=== PATIENT | female | born 1950 | race African-American/Black ===

== ENCOUNTER 2018-08-08 23:46 | Emergency (ER) | payer MEDICARE, MEDICAID ==
[~2018-08-08] VITALS: Ht 165.1 cm; Wt 93.2 kg
[~2018-08-08 23:46] MED LIST: CATAPRES 0.1MG0.1 MG PO; CLARITIN 1010 MG/TAB PO; HYZAAR 25 MG-101 TAB PO; IPRATROPIUM BROM3 M1 IH; K-DUR20 MEQ PO; LAMICTAL 100MG100 MG PO; LEVAQUIN 750MG750 M1 PO; LIQUIFILM TEARS15 ML; MACRODANTIN100 PO; MAG-OX 400400 MG/TAB PO; NORCO 325 MG-51 TAB PO; NORCO 325 MG-7.1 TAB PO; NORFLEX 10100 MG/TAB PO; PREDNISONE10 MG PO; PREDNISONE20 MG PO; PROAIR HFA0.09 MG/AC IH; SPIRIVA RE2.5 MCG/Ac IH; TENORMIN 5050 MG/TAB PO; VERELAN360 MG PO; XANAX 1MG1 MG PO; ZITHROMAX 250M250 MG PO; ZITHROMAX Z PA250 MG PO
[2018-08-08 23:47] VITALS: TEMP 97
[2018-08-09 00:25] LABS: COLLECTION METHOD CLEAN CATCH
[2018-08-09 00:30] LABS: PH 7 (5-8); SQUAMOUS EPITHELIAL 0-2 /hpf; URINE APPEARANCE Clear; URINE BACTERIA None Seen /hpf; URINE BILIRUBIN Negative (NEGATIVE); URINE BLOOD Negative (NEGATIVE); URINE COLOR Straw; URINE GLUCOSE Negative (NEGATIVE); URINE KETONE Negative (NEGATIVE); URINE LEUKOCYTE ESTERASE Trace (NEGATIVE); URINE NITRATE Negative (NEGATIVE); URINE PROTEIN(semi-quant) Negative (NEGATIVE); URINE RBC 0-2 /hpf; URINE UROBILINOGEN Negative (NEGATIVE)
[2018-08-09 01:32] LABS: BASO # 0.1 (0.0-0.2); BASO % 0.9 % (0.0-2.0); EOS # 0.3 (0.0-0.7); EOS % 5.2 % (0-4.0); GRAN # 1.8 (1.4-6.5); GRAN % 33.4 % (42.2-75.2); HEMOGLOBIN 14.6 g/dl (12.5-16.0); LYMPH # 2.8 (1.2-3.4); LYMPH % 52.5 % (20.0-51.0); MEAN CELL VOLUME 96 fl (80.0-100.0); MEAN CORPUSCULAR HEMOGLOBIN 33 pg (27.0-31.0); MEAN CORPUSCULAR HGB CONC 35 g/dl (33.0-37.0); MONO # 0.4 (0.1-0.6); MONO % 7.8 % (1.7-9.3); PLATELET COUNT 161 K/mm3 (130-400); RED BLOOD COUNT 4.39 M/mm3 (4.10-5.30); REDCELL DISTRIBUTION WIDTH-CV 13.1 % (11.5-14.5)
[2018-08-09 01:41] LABS: ALANINE AMINOTRANSFERASE 14 U/L (9-52); ALBUMIN 3.9 gm/dL (3.5-5.0); ALKALINE PHOSPHATASE 122 U/L (50-136); ANION GAP 10 mmol/L (7-16); AST,SGOT 17 U/L (15-37); BILIRUBIN,TOTAL 0.3 mg/dL (0.0-1.0); BLOOD UREA NITROGEN 14 mg/dL (7-17); CALCIUM 9.4 mg/dL (8.4-10.2); CARBON DIOXIDE 29 mmol/L (22-30); CHLORIDE 103 mmol/L (98-107); CREATININE, serum 0.68 (0.52-1.25); GLUCOSE 96 mg/dL (74-106); LIPASE 46 U/L (23-300); MAGNESIUM 1.8 mg/dL (1.6-2.3); POTASSIUM 3.3 mmol/L (3.4-5.0); SODIUM 142 mmol/L (137-145); TOTAL PROTEIN 7.7 gm/dL (6.4-8.2)
[2018-08-09 01:52] LABS: TROPONIN-I < 0.012 ng/mL (0.000-0.035)
[2018-08-09] MEDS ORDERED: PREDNISONE20 MG PO (02:20)
[2018-08-09] MEDS ORDERED: IPRATROPIUM BROM3 M1 IH (02:21)
[2018-08-09 03:07] VITALS: BP 131/83; PULSE 76
== END 2018-08-09 03:07 | disposition home or self-care (01) ==
LOC: COL.ER 23:46
PROVIDERS: Emergency Medicine
DX: J44.1 Chronic obstructive pulmonary disease with (acute) exacerbation (principal); F17.210 Nicotine dependence, cigarettes, uncomplicated
CPT/HCPCS: J7512

== ENCOUNTER 2018-08-25 21:13 | Emergency (ER) | payer MEDICARE, MEDICAID ==
[~2018-08-25] VITALS: Ht 165.1 cm; Wt 77.3 kg
[2018-08-25 21:29] VITALS: BP 198/87
[2018-08-25 22:38] VITALS: TEMP 97.2
[2018-08-25] MEDS ORDERED: PREDNISONE20 MG PO (23:01)
[2018-08-25] MEDS ORDERED: IPRATROPIUM BROM3 M1 IH (23:02)
[2018-08-25 23:30] VITALS: PULSE 97
== END 2018-08-25 23:30 | disposition home or self-care (01) ==
LOC: COL.ER 21:13
DX: J45.909 Unspecified asthma, uncomplicated (principal); I10 Essential (primary) hypertension; J44.9 Chronic obstructive pulmonary disease, unspecified; F17.210 Nicotine dependence, cigarettes, uncomplicated
CPT/HCPCS: J7512

== ENCOUNTER 2018-11-19 20:06 | Emergency (ER) | payer MEDICARE, MEDICAID ==
[~2018-11-19] VITALS: Ht 165.1 cm; Wt 93.2 kg
[2018-11-19 20:16] VITALS: TEMP 98.6
[2018-11-19 21:27] LABS: EOS # 0.4 (0.0-0.7); EOS % 9.3 % (0-4.0); GRAN # 1.6 (1.4-6.5); GRAN % 37.7 % (42.2-75.2); HEMATOCRIT 43.3 % (37.0-47.0); HEMOGLOBIN 14.8 g/dl (12.5-16.0); LYMPH # 1.9 (1.2-3.4); LYMPH % 44.7 % (20.0-51.0); MEAN CELL VOLUME 96 fl (80.0-100.0); MEAN CORPUSCULAR HEMOGLOBIN 33 pg (27.0-31.0); MEAN CORPUSCULAR HGB CONC 34 g/dl (33.0-37.0); MEAN PLATELET VOLUME 10.6 fl (7.4-10.4); MONO # 0.3 (0.1-0.6); MONO % 7.1 % (1.7-9.3); PLATELET COUNT 186 K/mm3 (130-400); REDCELL DISTRIBUTION WIDTH-CV 12.7 % (11.5-14.5)
[2018-11-19 21:34] LABS: INR 1.1 (0.8-3.0); PROTHROMBIN TIME 12.5 SECONDS (9.7-12.8)
[2018-11-19 21:39] LABS: ALANINE AMINOTRANSFERASE 15 U/L (9-52); ALBUMIN 4.2 gm/dL (3.5-5.0); ALKALINE PHOSPHATASE 106 U/L (50-136); ANION GAP 8 mmol/L (7-16); AST,SGOT 21 U/L (15-37); BILIRUBIN,TOTAL 0.3 mg/dL (0.0-1.0); BLOOD UREA NITROGEN 10 mg/dL (7-17); CALCIUM 9.2 mg/dL (8.4-10.2); CARBON DIOXIDE 31 mmol/L (22-30); CHLORIDE 103 mmol/L (98-107); CREATININE, serum 0.71 (0.52-1.25); GLUCOSE 92 mg/dL (74-106); POTASSIUM 3.8 mmol/L (3.4-5.0); SODIUM 141 mmol/L (137-145); TOTAL PROTEIN 7.7 gm/dL (6.4-8.2)
[2018-11-19 21:59] LABS: TROPONIN-I < 0.012 ng/mL (0.000-0.035)
[2018-11-19] MEDS ORDERED: PREDNISONE20 MG PO (22:48)
[2018-11-19] MEDS ORDERED: ZITHROMAX500 M2 PO (22:48)
[2018-11-19 23:13] VITALS: BP 166/74; PULSE 83
== END 2018-11-19 23:17 | disposition home or self-care (01) ==
LOC: COL.ER 20:06
PROVIDERS: Emergency Medicine
DX: J45.901 Unspecified asthma with (acute) exacerbation (principal); I10 Essential (primary) hypertension; F17.210 Nicotine dependence, cigarettes, uncomplicated; Z98.890 Other specified postprocedural states; Z79.52 Long term (current) use of systemic steroids
CPT/HCPCS: J2930; J3105; J7030

== ENCOUNTER 2019-02-13 19:55 | Emergency (ER) | payer MEDICARE, MEDICAID ==
[~2019-02-13] VITALS: Ht 165.1 cm; Wt 93.2 kg
[~2019-02-13 19:55] MED LIST changes: +ZITHROMAX500 M2 PO
[2019-02-13 19:58] VITALS: TEMP 98.1
[2019-02-13 20:19] LABS: BASO # 0.1 (0.0-0.2); EOS # 0.2 (0.0-0.7); EOS % 4.5 % (0-4.0); GRAN # 2.8 (1.4-6.5); HEMATOCRIT 43.6 % (37.0-47.0); HEMOGLOBIN 15.1 g/dl (12.5-16.0); LYMPH # 1.5 (1.2-3.4); LYMPH % 30.1 % (20.0-51.0); MEAN CELL VOLUME 96 fl (80.0-100.0); MEAN CORPUSCULAR HEMOGLOBIN 33 pg (27.0-31.0); MEAN CORPUSCULAR HGB CONC 35 g/dl (33.0-37.0); MEAN PLATELET VOLUME 10.2 fl (7.4-10.4); MONO # 0.5 (0.1-0.6); MONO % 9.2 % (1.7-9.3); PLATELET COUNT 192 K/mm3 (130-400); RED BLOOD COUNT 4.55 M/mm3 (4.10-5.30); REDCELL DISTRIBUTION WIDTH-CV 13.1 % (11.5-14.5)
[2019-02-13] MEDS ORDERED: PREDNISONE20 MG PO (22:17)
[2019-02-13 22:22] VITALS: BP 171/94; PULSE 86
[2019-02-14] VITALS (62 sets, daily range): O2SAT 83–93
[2019-02-14] MEDS ORDERED: VENTOLIN0.09 MG IH (22:55)
[2019-02-14] MEDS ORDERED: CATAPRES 0.1MG0.1 MG PO (22:57)
[2019-02-14] MEDS ORDERED: NORCO 325 MG-101 TAB PO (22:58)
[2019-02-14] MEDS ORDERED: VOLTAREN GEL 1%1 TU TP (23:04)
[2019-02-14] MEDS ORDERED: NATURAL POTASS595 MG PO (23:05)
[2019-02-14] MEDS ORDERED: B COMPLEX & B121 TAB PO (23:07)
[2019-02-14] MEDS ORDERED: OMEGA-3 1000 MG1 CAP PO (23:09)
[2019-02-15] VITALS (555 sets, daily range): O2SAT 79–100
[2019-02-16] VITALS (390 sets, daily range): O2SAT 91–100
[2019-02-17] VITALS (736 sets, daily range): O2SAT 91–100
[2019-02-18] VITALS (347 sets, daily range): O2SAT 91–100
== END 2019-02-13 22:41 | disposition home or self-care (01) ==
LOC: COL.ER 19:55
PROVIDERS: Family Medicine
DX: J45.901 Unspecified asthma with (acute) exacerbation (principal)
CPT/HCPCS: J2930

== ENCOUNTER 2019-02-14 16:12 | Inpatient (IN) | payer MEDICARE, MEDICAID ==
[~2019-02-14] VITALS: Ht 165.1 cm; Wt 104.6 kg
[2019-02-14 17:14] LABS: HEMATOCRIT 47.1 % (37.0-47.0); HEMOGLOBIN 16.3 g/dl (12.5-16.0); MEAN CELL VOLUME 96 fl (80.0-100.0); MEAN CORPUSCULAR HEMOGLOBIN 33 pg (27.0-31.0); MEAN CORPUSCULAR HGB CONC 35 g/dl (33.0-37.0); MEAN PLATELET VOLUME 10.5 fl (7.4-10.4); PLATELET COUNT 220 K/mm3 (130-400); REDCELL DISTRIBUTION WIDTH-CV 13.1 % (11.5-14.5)
[2019-02-14 17:21] LABS: ALBUMIN 4.8 gm/dL (3.5-5.0); BILIRUBIN,TOTAL 0.3 mg/dL (0.0-1.0); CREATININE, serum 0.62 (0.52-1.25); POTASSIUM 3.3 mmol/L (3.4-5.0); TOTAL PROTEIN 8.8 gm/dL (6.4-8.2)
[2019-02-14 17:56] LABS: BAND 10 % (0-10); LYMPHOCYTE 7 % (20.0-51.0); NEUTROPHILS 82 % (42.0-75.2); PLATELET ESTIMATE NORMAL (NORMAL)
[2019-02-14 17:57] LABS: TOXIC GRANULATION PRESENT
[2019-02-14 22:09] LABS: ARTERIAL BLD GAS O2 SATURATION 92.4 % (92-100); ARTERIAL BLD GAS TCO2 CT 29.8; ARTERIAL BLOOD GAS PCO2 58.8 mmHg (35-45); ARTERIAL BLOOD GAS PO2 67.4 mmHg (80-100)
--- NOTE | 2019-02-14 22:15 | NUR ---
PT arrived on unit accompanied by TASHA Camara and TASHA Weber. PT was audibly wheezing, tachypneic, and constantly talking despite being informed that she needs to focus on her breathing. PT states that "I can talk and breathe at the same time. I have to talk to breathe." When asked if she is able to transfer herself to the bed, she stated no but then said she needed to get up to use the bathroom saying "Get me up now, I need to pee." Clarified with the patient as to whether she can get up or not she said "Well yeah when I have to." PT continually talking despite saying she feels like she can't breathe.
[2019-02-14] MEDS ORDERED: VENTOLIN0.09 MG IH (22:55)
[2019-02-14] MEDS ORDERED: CATAPRES 0.1MG0.1 MG PO (22:57)
[2019-02-14] MEDS ORDERED: NORCO 325 MG-101 TAB PO (22:58)
[2019-02-14] MEDS ORDERED: VOLTAREN GEL 1%1 TU TP (23:04)
[2019-02-14] MEDS ORDERED: NATURAL POTASS595 MG PO (23:05)
[2019-02-14] MEDS ORDERED: B COMPLEX & B121 TAB PO (23:07)
[2019-02-14] MEDS ORDERED: OMEGA-3 1000 MG1 CAP PO (23:09)
[2019-02-15] VITALS (10 sets, daily range): BP systolic 93–208; BP diastolic 54–137; PULSE 87–132; TEMP 97.4–98
[2019-02-15 03:37] LABS: ARTERIAL BLD GAS TCO2 CT 33.3; ARTERIAL BLOOD GAS BASE EXCESS -1.9 (-2-2); ARTERIAL BLOOD GAS HCO3 30.4 meq/L (22-26); ARTERIAL BLOOD GAS PO2 71.9 mmHg (80-100)
[2019-02-15 03:38] LABS: ARTERIAL BLOOD GAS PCO2 92.1 mmHg (35-45); ARTERIAL BLOOD GAS pH 7.14 (7.35-7.45)
--- NOTE | 2019-02-15 05:52 | NUR ---
0302 ASSUMED CARE OF PT AT THIS TIME, REQUESTED AID OF ED MD TO EMERGENTLY INTUBATED. 0337 ED MD AT BEDSIDE, RT RASHMI, RN CAREETA 20MG ETOMIDATE AND 150MG SUCCS GIVE RSI MEDS 0344 CARDENE PLACED ON HOLD 0349 FIRST PASS WITH TUBE PLACED AND GOOD COLOR CHANGE, AUSCULTATED WITH BILATERAL POSITIVE BREATHSOUNDS, ETT-24 AT THE TEETH, TUBE SECURED AND RESTRAINTS INITIATED 0356 PROPOFOL INITIATED AT 20MCG/KG/MIN 0356 OGT PLACED 76 AT TEETH 0358 PROPOFOL INCREASE TO 25MCG, ED MD AT BEDSIDE, PT SEVERLY FIGHTING VENT 0359 PROP INCREASED TO 30MCG 0404 PROP INCREASED TO 40MCH PT CONTINUES TO FIGHT VENT, WITH INADEQUATE VENTILATION 0405 PROP INCREASED TO 50MCG AND [facility] CALLED UNIT ORDERS WERE RECIEVED FOR ADDITIONAL SEDATION 0418 PT RECIEVED 50MCG FENTANYL AND 4MG VERSED PUSH WITH VERSED GTT INITIATED. WASCALLED AND UPDATED RE; VENT SETTINGS, HIGH DOSE SEDATIONS PROP AND FENT BEING CURRENTLY MAXED. ORDERS RECIEVED. PT REMAINS ASYNCHRONOUS - [address] ESTRADA CALLED X 2 AND VOICE MESSAGE LEFT ON 2ND CALL. [facility] THEN AGAIN CALLED FOR ADDITIONAL ORDERS. 0612 [facility] WAS CALLED AND UPDATED ON ABG RESULTS MCDONALD PLACED AT 0450 RT CONTINUES TO REMAIN AT BEDSIDE.
[2019-02-15 06:08] LABS: ARTERIAL BLD GAS O2 SATURATION 97.7 % (92-100); ARTERIAL BLD GAS TCO2 CT 33.2; ARTERIAL BLOOD GAS HCO3 30.4 meq/L (22-26); ARTERIAL BLOOD GAS PO2 118.1 mmHg (80-100)
[2019-02-15 06:09] LABS: ARTERIAL BLOOD GAS PCO2 93.8 mmHg (35-45); ARTERIAL BLOOD GAS pH 7.13 (7.35-7.45)
--- NOTE | 2019-02-15 06:31 | NUR ---
Throughout the night, patient was tachypneic with a RR in the high 30's to low 40's, hypertensive despite having Cardene running, tachycardic with a HR sustaining in the 130's. Patient extremely SOA with any activity, frequently stating "I'm hot, I can't breathe." PT continued to talk rather than try to catch breath despite direction from staff to reduce talking and focus on breathing. Orders were placed to have PT wear a BiPap but the patient refused despite direction from staff that she needed to wear it or her ABG, respiration rate, and overall decline of health that would likely lead to intubation. After an hour of discussion from myself, Tessa RT, and Tia RN, patient still refused stating "well how do you know it's bad? It's not bad, I'm better than I was earlier. I just need to eat and relax, I'm gonna do my own experiment to see if I get better. I know." Provider was notified several times about PT's refusal to wear BiPap. See physician notification notes for details. Initially on admit, PT stated she wanted to be a Full Code with all interventions. But as the night progressed and we discussed POC, interventions (ex. PT needing to wear her BiPap or else she would decline). PT stated "I just wanna relax and be comfortable." Informed that she needed to decide whether she wants interventions or not. Eventually, PT progressed to the point where she was answering questions inappropriately and was very forgetful. At this point, after discussing with provider and another nurse, it was decided to call family members to discuss POC. Kikiederwilner Dylan, PT's niece and PT stated she wanted her called first, was called 4 times, no answer, and no voicemail was set up. Marla Yu, PT daughter, was called 3 times, no answer, no voicemail was set up. Dr. Jones called back shortly after 0300 stating that he was on his way, the plan was to intubate the patient and to contact ER provider to do the intubation. Charge nurse was notified as well as retail warehouse supervisor.
--- NOTE | 2019-02-15 07:04 | NUR ---
PT INTUBATED AT 0337 DUE TO VENTILATORY FAILURE.
--- NOTE | 2019-02-15 07:33 | NUR ---
PT JUST RECENTLY INTUBATED AT 02/15 @ 0205
[2019-02-15 08:42] LABS: ARTERIAL BLD GAS O2 SATURATION 95.9 % (92-100); ARTERIAL BLD GAS TCO2 CT 26.7; ARTERIAL BLOOD GAS BASE EXCESS -4.4 (-2-2); ARTERIAL BLOOD GAS HCO3 24.8 meq/L (22-26); ARTERIAL BLOOD GAS PO2 87.8 mmHg (80-100); ARTERIAL BLOOD GAS pH 7.21 (7.35-7.45)
--- NOTE | 2019-02-15 08:49 | NUR ---
Vancomycin Initial Dosing Pharmacy Note Ordering provider: Eugene Jones MD Indication/duration: intubation/COPD, 7 days Relevant comorbidities: COPD LABS: SCr 0.62, CrCl~83, GFR 116 Recommendation: Will give Vancomycin 1.5 gm IV x1 loading dose, then Vancomycin 1 gm IV q8h. Pharmacy will continue to monitor and check a Vancomycin trough prior to 4th total dose on 02/16/19. Loading dose: 1.5 grams Maintenance dose: 1 gram every 8 hours Trough goal: 15-20 ug/mL
[2019-02-15 09:09] LABS: ARTERIAL BLD GAS O2 SATURATION 98.9 % (92-100); ARTERIAL BLOOD GAS BASE EXCESS -7.7 (-2-2); ARTERIAL BLOOD GAS HCO3 21.2 meq/L (22-26); ARTERIAL BLOOD GAS PCO2 57.3 mmHg (35-45); ARTERIAL BLOOD GAS PO2 163.6 mmHg (80-100); ARTERIAL BLOOD GAS pH 7.19 (7.35-7.45)
--- NOTE | 2019-02-15 09:20 | NUR ---
Versed changed to Fentanyl
[2019-02-15 11:22] LABS: BASO % 0.1 % (0.0-2.0); EOS % 0.1 % (0-4.0); HEMATOCRIT 43.3 % (37.0-47.0); LYMPH # 0.8 (1.2-3.4); LYMPH % 5.8 % (20.0-51.0); MEAN CORPUSCULAR HGB CONC 33 g/dl (33.0-37.0); MEAN PLATELET VOLUME 11.2 fl (7.4-10.4); MONO # 0.5 (0.1-0.6); MONO % 3.7 % (1.7-9.3); PLATELET COUNT 170 K/mm3 (130-400); RED BLOOD COUNT 4.26 M/mm3 (4.10-5.30); REDCELL DISTRIBUTION WIDTH-CV 13.9 % (11.5-14.5)
[2019-02-15 11:23] LABS: HEMOGLOBIN 14.3 g/dl (12.5-16.0); MEAN CELL VOLUME 102 fl (80.0-100.0); MEAN CORPUSCULAR HEMOGLOBIN 34 pg (27.0-31.0)
[2019-02-15 11:47] LABS: CALCIUM 8.6 mg/dL (8.4-10.2); CREATININE, serum 1.05 (0.52-1.25); MAGNESIUM 1.9 mg/dL (1.6-2.3); PHOSPHOROUS 3.8 mg/dL (2.5-4.5); POTASSIUM 4.8 mmol/L (3.4-5.0)
[2019-02-15 13:36] LABS: ARTERIAL BLD GAS O2 SATURATION 96.2 % (92-100); ARTERIAL BLD GAS TCO2 CT 25.4; ARTERIAL BLOOD GAS BASE EXCESS -5.3 (-2-2); ARTERIAL BLOOD GAS HCO3 23.5 meq/L (22-26); ARTERIAL BLOOD GAS PO2 86.8 mmHg (80-100); ARTERIAL BLOOD GAS pH 7.21 (7.35-7.45)
--- NOTE | 2019-02-15 13:43 | NUR ---
Trucker Hand was unable to meet with patient as she is currently intubated with full vent support. EUGENE spoke with RNRhona who advised family has not been reached yet. EUGENE contacted patient's daughter, Marla (ph#[phone]) who states she was unaware patient was in the hospital. Marla states she lives in [place] and states her brother, Aliyah Back also lives in [place] but does not have a working phone at this time. Marla reports patient lives alone in [place] [facility] and is unsure of who patient's primary care physician is. Marla states patient is independent with ADLS and uses home oxygen. Marla does not know if patient has Advance Directives but if someone was designated for DPOA-HC it would likely be her. Marla requested RN contact her so she could obtain update on her mother. EUGENE spoke with RNRhona who advised she would call Marla. EUGENE to continue to follow to ensure safe discharge.
[2019-02-15 20:00] LABS: COLLECTION METHOD CATHETER
--- NOTE | 2019-02-15 20:00 | NUR ---
Patient assessed, vitals stable, lines retraced. Will continue to monitor.
[2019-02-15 20:20] LABS: MUCOUS Present /lpf; PH 5 (5-8); SQUAMOUS EPITHELIAL 0-2 /hpf; URINE APPEARANCE Cloudy; URINE BACTERIA None Seen /hpf; URINE BILIRUBIN Negative (NEGATIVE); URINE BLOOD 2+ (NEGATIVE); URINE COLOR Yellow; URINE GLUCOSE Negative (NEGATIVE); URINE KETONE Negative (NEGATIVE); URINE LEUKOCYTE ESTERASE Trace (NEGATIVE); URINE NITRATE Negative (NEGATIVE); URINE PROTEIN(semi-quant) 2+ (NEGATIVE); URINE UROBILINOGEN Negative (NEGATIVE)
[2019-02-16] VITALS (7 sets, daily range): BP systolic 125–176; BP diastolic 64–96; PULSE 80–99; TEMP 98–98.7
--- NOTE | 2019-02-16 04:30 | NUR ---
Increased Propofol from 35 mcg/kg/min to 50 per [facility] provider.
--- NOTE | 2019-02-16 05:00 | NUR ---
Spoke with Dr. Nash via webcam in patient from about 0445 to 0525 regarding ventilation issues with the patient. Present in the room was TASHA Vaughan, Huma RT, and Colten RT. Dr. Nash had RT adjust the vent settings and switch vent machienes since the PT was not getting proper TV without high peak pressures despite sedation and setting changes. Before speaking to Dr. Nash, we spoke with TASHA Mims who recommended that we increase the propofol gtt from 35 mcg/kg/min to 50 without titrating, Dr. Nash agreeed with this course of action. 9mg of vecuronium was admistered per provider order by TASHA Vaughan. After doing so, patient's intake volumes increased and peak pressures decreased. Train of Four was performed on the patient's taoism where 1 of 4 twitches were noted.
--- NOTE | 2019-02-16 06:17 | NUR ---
no weaning assessment per Dr. Nash
[2019-02-16 06:33] LABS: HEMATOCRIT 38.6 % (37.0-47.0); HEMOGLOBIN 12.5 g/dl (12.5-16.0); MEAN CELL VOLUME 103 fl (80.0-100.0); MEAN CORPUSCULAR HEMOGLOBIN 33 pg (27.0-31.0); MEAN CORPUSCULAR HGB CONC 32 g/dl (33.0-37.0); MEAN PLATELET VOLUME 10.6 fl (7.4-10.4); PLATELET COUNT 139 K/mm3 (130-400); RED BLOOD COUNT 3.76 M/mm3 (4.10-5.30); REDCELL DISTRIBUTION WIDTH-CV 13.9 % (11.5-14.5)
[2019-02-16 06:42] LABS: CALCIUM 8.8 mg/dL (8.4-10.2); CREATININE, serum 1.84 (0.52-1.25); POTASSIUM 4.8 mmol/L (3.4-5.0)
[2019-02-16 07:18] LABS: ARTERIAL BLD GAS O2 SATURATION 98.6 % (92-100); ARTERIAL BLOOD GAS BASE EXCESS -1.2 (-2-2); ARTERIAL BLOOD GAS HCO3 27.1 meq/L (22-26); ARTERIAL BLOOD GAS PCO2 61.6 mmHg (35-45); ARTERIAL BLOOD GAS pH 7.26 (7.35-7.45)
[2019-02-16 07:20] LABS: ARTERIAL BLOOD GAS PO2 140.6 mmHg (80-100)
--- NOTE | 2019-02-16 07:59 | NUR ---
Vancomycin Follow-up Pharmacy Note Current regimen: Vancomycin 1 gm IV q12h Vancomycin trough: n/a, SCr=1.84<-1.05, CrCl~32, GFR 33 Adjustments: Will decrease Vancomycin to 1.25 gm IV q24h with decrease in renal function. Will check Vancomycin prior to 4th total dose on 02/17/19. Pharmacy will continue to monitor.
[2019-02-16 09:50] LABS: BAND 1 % (0-10); LYMPHOCYTE 6 % (20.0-51.0); NEUTROPHILS 91 % (42.0-75.2); PLATELET ESTIMATE NORMAL (NORMAL)
--- NOTE | 2019-02-16 17:00 | NUR ---
PT OPENS EYES TO VOICE. PT SHAKES HEAD YES OR NO TO SOME QUESTIONS BUT NOT ALL. PT MOVING ALL EXTREMITIES BUT WONT MOVE THEM TO COMMAND. WHEN ASSESSING PUPILS PT ATTEMPTS TO SHUT HER EYES. PT BECOMING RESTLESS AND BITING ET TUBE. SEDATION INCREASED.
--- NOTE | 2019-02-16 19:25 | NUR ---
Received report from TASHA Bonner.
--- NOTE | 2019-02-16 22:00 | NUR ---
Patient opens eyes to speech but does not follow commands. Patient rests between disturbances and is tolerating the ventilator well, however, tension is evident in her facial features and she wakes easily when stimulated. Patient's BP elevated slightly to 176/87 following repositioning and oral care. Propofol titrated according to orders to 45 mcg/kg/min or 24.2 mL/hour. Will continue to monitor.
[2019-02-17] VITALS (7 sets, daily range): BP systolic 132–174; BP diastolic 63–81; PULSE 91–102; TEMP 97.5–99.1
[2019-02-17 05:32] LABS: ARTERIAL BLD GAS O2 SATURATION 97.7 % (92-100); ARTERIAL BLD GAS TCO2 CT 30.7; ARTERIAL BLOOD GAS BASE EXCESS 3.2 (-2-2); ARTERIAL BLOOD GAS HCO3 29.2 meq/L (22-26); ARTERIAL BLOOD GAS PCO2 50.1 mmHg (35-45); ARTERIAL BLOOD GAS pH 7.38 (7.35-7.45)
--- NOTE | 2019-02-17 05:45 | NUR ---
Patient's sedation vacation begun at 0506 by titrating propofol to 22 mcg/kg/min or 11.8 mL/hr. Patient opened eyes spontaneously but still does not follow commands. Patient became more resistant to ventilator, evidenced by her attempt to sit up in bed and biting the ET tube. Patient's 0530 BP was 190/103. Propofol was titrated back to prior dose of 45 mcg/kg/min at 0535. Will continue to monitor.
[2019-02-17 06:23] LABS: HEMATOCRIT 38.5 % (37.0-47.0); HEMOGLOBIN 12.7 g/dl (12.5-16.0); MEAN CELL VOLUME 99 fl (80.0-100.0); MEAN CORPUSCULAR HEMOGLOBIN 33 pg (27.0-31.0); MEAN CORPUSCULAR HGB CONC 33 g/dl (33.0-37.0); MEAN PLATELET VOLUME 10.9 fl (7.4-10.4); PLATELET COUNT 130 K/mm3 (130-400); RED BLOOD COUNT 3.89 M/mm3 (4.10-5.30); REDCELL DISTRIBUTION WIDTH-CV 13.6 % (11.5-14.5)
[2019-02-17 06:38] LABS: CALCIUM 8.8 mg/dL (8.4-10.2); CREATININE, serum 1.78 (0.52-1.25); POTASSIUM 3.7 mmol/L (3.4-5.0)
[2019-02-17 06:58] LABS: BAND 4 % (0-10); LYMPHOCYTE 11 % (20.0-51.0); NEUTROPHILS 84 % (42.0-75.2); PLATELET ESTIMATE NORMAL (NORMAL)
--- NOTE | 2019-02-17 07:24 | NUR ---
Report given to TASHA Mir.
--- NOTE | 2019-02-17 07:28 | NUR ---
Pt remains intubated and sedated - Patience,RT at bedside - ventilatory assessment completed together. Pt able to open eys to touch and voice, eye contact avoided and unwilling to follow commands, pt was able to nod in a "yes" fashion when asked if pt is having pain - this finding is no change when assessed by shift supervisor
--- NOTE | 2019-02-17 11:49 | NUR ---
Order Caller attended clinical rounds with the team. Patient still intubated. SW to continue to follow.
[2019-02-18] VITALS: BP 152/79; PULSE 90; TEMP 98.8
[2019-02-18 04:00] VITALS: BP 173/86; PULSE 102; TEMP 98.6
[2019-02-18 05:15] LABS: HEMATOCRIT 37.8 % (37.0-47.0); HEMOGLOBIN 12.7 g/dl (12.5-16.0); MEAN CELL VOLUME 99 fl (80.0-100.0); MEAN CORPUSCULAR HEMOGLOBIN 33 pg (27.0-31.0); MEAN CORPUSCULAR HGB CONC 34 g/dl (33.0-37.0); MEAN PLATELET VOLUME 10.7 fl (7.4-10.4); PLATELET COUNT 128 K/mm3 (130-400); RED BLOOD COUNT 3.83 M/mm3 (4.10-5.30); REDCELL DISTRIBUTION WIDTH-CV 13.6 % (11.5-14.5)
[2019-02-18 05:24] LABS: ALBUMIN 3.4 gm/dL (3.5-5.0); BILIRUBIN,TOTAL 0.8 mg/dL (0.0-1.0); CALCIUM 8.9 mg/dL (8.4-10.2); CREATININE, serum 1.58 (0.52-1.25); MAGNESIUM 2.1 mg/dL (1.6-2.3); POTASSIUM 3.7 mmol/L (3.4-5.0); TOTAL PROTEIN 6.5 gm/dL (6.4-8.2)
[2019-02-18 05:26] LABS: ARTERIAL BLD GAS O2 SATURATION 96.9 % (92-100); ARTERIAL BLD GAS TCO2 CT 32.6; ARTERIAL BLOOD GAS BASE EXCESS 5.2 (-2-2); ARTERIAL BLOOD GAS HCO3 31.1 meq/L (22-26); ARTERIAL BLOOD GAS PCO2 50.4 mmHg (35-45); ARTERIAL BLOOD GAS PO2 89.7 mmHg (80-100); ARTERIAL BLOOD GAS pH 7.41 (7.35-7.45)
[2019-02-18 05:55] VITALS: BP 186/100; PULSE 109
--- NOTE | 2019-02-18 06:05 | NUR ---
WEANING TRIAL FAILED. HR GREATER THAN 120, RR RATE GREATER THAN 30 AT TIMES AND APNEIC.
[2019-02-18 07:03] LABS: ANISOCYTOSIS 1+; BAND 5 % (0-10); LYMPHOCYTE 8 % (20.0-51.0); NEUTROPHILS 81 % (42.0-75.2); PLATELET ESTIMATE DECREASED (NORMAL)
--- NOTE | 2019-02-18 07:15 | NUR ---
GAVE REPORT TO TASHA TREVIZO AT PT BEDSIDE.
[2019-02-18 08:00] VITALS: BP 156/90; PULSE 92; TEMP 99.2
--- NOTE | 2019-02-18 09:14 | NUR ---
ATTEMPTING VENT WEANING TRIAL PER . RT BEDSIDE. PT OPENING EYES TO VOICE AT CURRENT SEDATION BUT NEEDING CONSTANT STIMULI TO BREATH. PROPOFOL DECREASED TO 35MCG/KG/MIN TO HELP PT STAY AWAKE AND BREATH ON HER OWN. WILL CONTINUE TO MONITOR.
[2019-02-18 16:00] VITALS: BP 120/68; PULSE 80; TEMP 94
[2019-02-18 20:00] VITALS: BP 161/75; PULSE 100; TEMP 99.4
[2019-02-19] VITALS (12 sets, daily range): BP systolic 116–211; BP diastolic 65–112; PULSE 90–112; TEMP 98.7–99.1
[2019-02-19 05:09] LABS: GRAN # 7.7 (1.4-6.5); GRAN % 89.4 % (42.2-75.2); HEMOGLOBIN 13.5 g/dl (12.5-16.0); LYMPH # 0.4 (1.2-3.4); LYMPH % 4.9 % (20.0-51.0); MEAN CELL VOLUME 98 fl (80.0-100.0); MEAN CORPUSCULAR HEMOGLOBIN 34 pg (27.0-31.0); MEAN CORPUSCULAR HGB CONC 35 g/dl (33.0-37.0); MEAN PLATELET VOLUME 10.7 fl (7.4-10.4); MONO # 0.4 (0.1-0.6); MONO % 4.4 % (1.7-9.3); PLATELET COUNT 136 K/mm3 (130-400); RED BLOOD COUNT 3.97 M/mm3 (4.10-5.30); REDCELL DISTRIBUTION WIDTH-CV 13.6 % (11.5-14.5)
[2019-02-19 05:20] LABS: ALBUMIN 3.4 gm/dL (3.5-5.0); BILIRUBIN,TOTAL 0.5 mg/dL (0.0-1.0); CALCIUM 8.6 mg/dL (8.4-10.2); CREATININE, serum 1.36 (0.52-1.25); MAGNESIUM 2.2 mg/dL (1.6-2.3); TOTAL PROTEIN 6.6 gm/dL (6.4-8.2)
[2019-02-19 05:21] LABS: ARTERIAL BLD GAS O2 SATURATION 95.4 % (92-100); ARTERIAL BLD GAS TCO2 CT 35.8; ARTERIAL BLOOD GAS BASE EXCESS 8.8 (-2-2); ARTERIAL BLOOD GAS HCO3 34.2 meq/L (22-26); ARTERIAL BLOOD GAS PCO2 49.7 mmHg (35-45); ARTERIAL BLOOD GAS PO2 74.1 mmHg (80-100); ARTERIAL BLOOD GAS pH 7.46 (7.35-7.45)
--- NOTE | 2019-02-19 09:50 | NUR ---
BEDSIDE AND ORDERED TO STOP FENY AND PROPOFOL. START PRECEDEX AND WILL TRY VENT WEANING TRIAL.
--- NOTE | 2019-02-19 10:06 | NUR ---
BEDSIDE AND PT VERY RESTLESS AND BITING ON ET TUBE. DR. CALHOUN ORDER TO INCREASE PRECEDEX TO 0.6MCG/KG/MIN.
--- NOTE | 2019-02-19 10:09 | NUR ---
PT PLACED ON CPAP AT THIS TIME BY . TRIAL JUST STARTED. WILL CONTINUE TO MONITOR PATIENT AND MAKE APPROPRIATE CHANGES IF NECESSARY.
--- NOTE | 2019-02-19 10:16 | NUR ---
PT BP INCREASED TO 200'S WHILE ON VENT WEANING TRIAL. HR ALSO HAD TWO BURSTS UP TO 170'S THEN BACK TO 110'S. NOTIFIED AND ORDER RECEIVED TO START CARDENE.
--- NOTE | 2019-02-19 10:50 | NUR ---
PT UNABLE TO MAINTAIN OXYGEN SATURATION WHILE ON WEANING TRIAL. PT PLACED BACK ON ASSIST CONTROL. ORDERED TO RESTART PROPOFOL AND FENT AND STOP PRECEDEX.
[2019-02-19 11:05] LABS: ARTERIAL BLD GAS O2 SATURATION 92.2 % (92-100); ARTERIAL BLD GAS TCO2 CT 33.5; ARTERIAL BLOOD GAS BASE EXCESS 7.3 (-2-2); ARTERIAL BLOOD GAS HCO3 32.1 meq/L (22-26); ARTERIAL BLOOD GAS PCO2 45.6 mmHg (35-45); ARTERIAL BLOOD GAS PO2 62.3 mmHg (80-100); ARTERIAL BLOOD GAS pH 7.47 (7.35-7.45)
--- NOTE | 2019-02-19 16:49 | NUR ---
PT IS ALERT ON CURRENT SEDATION. PT MOVING ALL EXTREMETIES AND WILL ANSWER SOME YES OR NO QUESITONS. PT STILL NOT FOLLOWING COMMANDS. PT PREVIOUSLY TODAY OFF SEDATION AND CHANGED TO PRECEDEX. SEE PREVIOUS NOTES. WILL CONTINUE TO MONITOR.
--- NOTE | 2019-02-19 17:00 | NUR ---
WANTS PROPOFOL OFF AND CHANGE TO PRECEDEX.
--- NOTE | 2019-02-19 19:00 | NUR ---
RECIEVED REPORT FROM TASHA FLORES.
[2019-02-20] VITALS (11 sets, daily range): BP systolic 123–173; BP diastolic 70–87; PULSE 78–98; TEMP 98–98.4
--- NOTE | 2019-02-20 02:15 | NUR ---
PT WAS AGITATED, KICKING LEGS AND PULLING UP ON HER RESTRAINTS.
[2019-02-20 04:47] LABS: BASO % 0.1 % (0.0-2.0); GRAN # 7.3 (1.4-6.5); GRAN % 89.5 % (42.2-75.2); LYMPH # 0.4 (1.2-3.4); MEAN CELL VOLUME 99 fl (80.0-100.0); MEAN CORPUSCULAR HEMOGLOBIN 33 pg (27.0-31.0); MEAN CORPUSCULAR HGB CONC 33 g/dl (33.0-37.0); MEAN PLATELET VOLUME 10.7 fl (7.4-10.4); MONO # 0.4 (0.1-0.6); MONO % 4.5 % (1.7-9.3); PLATELET COUNT 135 K/mm3 (130-400); RED BLOOD COUNT 3.96 M/mm3 (4.10-5.30); REDCELL DISTRIBUTION WIDTH-CV 13.6 % (11.5-14.5)
[2019-02-20 04:55] LABS: ALBUMIN 3.2 gm/dL (3.5-5.0); BILIRUBIN,TOTAL 0.6 mg/dL (0.0-1.0); CALCIUM 8.1 mg/dL (8.4-10.2); CREATININE, serum 1.14 (0.52-1.25); MAGNESIUM 2.4 mg/dL (1.6-2.3); POTASSIUM 3.6 mmol/L (3.4-5.0)
[2019-02-20 05:36] LABS: ARTERIAL BLD GAS O2 SATURATION 96.7 % (92-100); ARTERIAL BLD GAS TCO2 CT 34.7; ARTERIAL BLOOD GAS BASE EXCESS 7.9 (-2-2); ARTERIAL BLOOD GAS HCO3 33.2 meq/L (22-26); ARTERIAL BLOOD GAS PCO2 48.7 mmHg (35-45); ARTERIAL BLOOD GAS PO2 85.4 mmHg (80-100); ARTERIAL BLOOD GAS pH 7.45 (7.35-7.45)
--- NOTE | 2019-02-20 20:15 | NUR ---
Patient has noticable swollen hands, rings x4 removed from bilateral hands and placed in denture cup with patient label on counter. Patient residual checked with assessment, 550 ml noted. Feeding held per order, will recheck in 2 hours. Patient able to follow commands, not fighting ventilator, blood pressure below 160-see flowsheet, morgan draining to gravity, soft wrist restraints in place, IVs infusing well.
--- NOTE | 2019-02-20 21:49 | NUR ---
Received new orders from [facility] regarding abdominal distention, will xray abdomen, administrer Reglan per order, and continue to check residuals every 2 hours until below 250ml per protocol and hold feedings.
--- NOTE | 2019-02-20 22:35 | NUR ---
Recheck of residual showed 550ml at 2215. Irene COX noitified at 1031, advised to hold feeding and call [facility]. [facility] notified at 509.
[2019-02-21] VITALS (21 sets, daily range): BP systolic 135–192; BP diastolic 72–100; PULSE 83–122; TEMP 98.3–99
--- NOTE | 2019-02-21 02:00 | NUR ---
Notified [facility] of patient intolerance of ventilator at 0030. Received orders to increase Precedex dose, see IV titration flow sheet for increases. Notified [facility] of continued alarming on vent at 0142, received orders to try CPAP mode on vent. Notified PRODUCTION ENGINEER of new orders. Patient still has residual of 400ml as well, will continue to hold feedings and recheck in 2 hours. IVs infusing well, morgan draining to gravity, patient not alarming on ventilator at this time, will continue to monitor.
--- NOTE | 2019-02-21 02:51 | NUR ---
PT WAS PLACED ON CPAP TRIAL WITH ORDERS FROM [facility] DR. PEDRAZA. PT WAS FIRST ON PRESSURE SUPPORT OF 15/8, THEN 12/8 AND FINALLY TITRATED DOWN TO 10/[address] PEDRAZA HAS ORDERED AN ABG AT 0300 AND WILL CONTINUE TO MONITOR AND ASSESS PT. SHE IS TOLERATING CPAP TRIAL VERY WELL. NO DISTRESS IS NOTED AT THIS TIME AND SHE IS RESTING COMFORTABLY WITH BREATHING ON HER OWN. WITH RESULTS FROM ABG WILL ASSESS AND CHANGE SETTINGS NEEDED. RN IS NOTIFIED AND WILL CALL [facility] WITH ANY CHANGES.
[2019-02-21 03:15] LABS: ARTERIAL BLD GAS O2 SATURATION 96.2 % (92-100); ARTERIAL BLD GAS TCO2 CT 33.1; ARTERIAL BLOOD GAS BASE EXCESS 5.1 (-2-2); ARTERIAL BLOOD GAS HCO3 31.5 meq/L (22-26); ARTERIAL BLOOD GAS PCO2 52.8 mmHg (35-45); ARTERIAL BLOOD GAS PO2 86.9 mmHg (80-100); ARTERIAL BLOOD GAS pH 7.39 (7.35-7.45)
--- NOTE | 2019-02-21 03:36 | NUR ---
@ 4320 [facility] WAS CALLED WITH ABG RESULTS FROM AN HOUR OF BEING ON CPAP TRIAL, PT IS DARBY WELL AND IS IN NO DISTRESS. DR HERNÁNDEZ SENT OVER ORDERS TO DECREASED PTS PRESSURE SUPPORT AND DO A REPEATE BLOOD GAS AT 0545. PT IS CURRRENTLY ON A PRESSURE SUPPORT 11/30 WILL DECREASE PRESSURE SUPPORT TO 8 AND GO FROM THERE. PT IS DARBY TRIAL VERY WELL. WILL NOTIFY RN AND WILL CONTINUE TO MONITOR AND ASSESS.
--- NOTE | 2019-02-21 03:37 | NUR ---
Received call and new oders from [facility]/Dr. Nash for change in vent settings and medication, also to recheck ABGs in a couple hours. Patient tolerating vent well, morgan draining to gravity, IVs infusing well, will continue to monitor.
[2019-02-21 05:59] LABS: ARTERIAL BLD GAS O2 SATURATION 87.9 % (92-100); ARTERIAL BLD GAS TCO2 CT 34.1; ARTERIAL BLOOD GAS BASE EXCESS 6.3 (-2-2); ARTERIAL BLOOD GAS HCO3 32.5 meq/L (22-26); ARTERIAL BLOOD GAS PCO2 52.3 mmHg (35-45); ARTERIAL BLOOD GAS PO2 52.9 mmHg (80-100); ARTERIAL BLOOD GAS pH 7.41 (7.35-7.45)
[2019-02-21 06:03] LABS: ALBUMIN 3.5 gm/dL (3.5-5.0); BILIRUBIN,TOTAL 0.6 mg/dL (0.0-1.0); CALCIUM 8.4 mg/dL (8.4-10.2); CREATININE, serum 1.1 (0.52-1.25); MAGNESIUM 2.8 mg/dL (1.6-2.3); PHOSPHOROUS 3.4 mg/dL (2.5-4.5); POTASSIUM 4.4 mmol/L (3.4-5.0); TOTAL PROTEIN 6.6 gm/dL (6.4-8.2)
--- NOTE | 2019-02-21 06:20 | NUR ---
RESIDUAL CHECK 320ML, REPLACED. TF CONTINUES TO BE ON HOLD AT THIS TIME.
--- NOTE | 2019-02-21 06:25 | NUR ---
ON CPAP TRIAL DARBY WELL WITH NO DISTRESS NOTED WILL NOTIFY DAY SHIFT RT OF CPAP TRIAL GOING ON.
--- NOTE | 2019-02-21 07:04 | NUR ---
Sedation vacation not performed, see patient titration record for medication changes throughout night. Patient resting comfortably on CPAP, not fighting ET tube at current settings.
--- NOTE | 2019-02-21 08:00 | NUR ---
MD Chin and TASHA Lloyd AIVS notified of right arm swelling from shoulder to fingers. Ultrasound order imputed by
--- NOTE | 2019-02-21 09:20 | NUR ---
Contacted by primary care nurse regarding patient's right arm is swollen. Right arm is swollen. Hand is swollen. Left hand is swollen also. Agreed with ultrasound of right arm. Awaiting results.
[2019-02-21 10:10] LABS: ARTERIAL BLD GAS O2 SATURATION 94.5 % (92-100); ARTERIAL BLD GAS TCO2 CT 35.2; ARTERIAL BLOOD GAS BASE EXCESS 6.7 (-2-2); ARTERIAL BLOOD GAS HCO3 33.5 meq/L (22-26); ARTERIAL BLOOD GAS PCO2 56.6 mmHg (35-45); ARTERIAL BLOOD GAS PO2 66.5 mmHg (80-100); ARTERIAL BLOOD GAS pH 7.39 (7.35-7.45)
--- NOTE | 2019-02-21 10:25 | NUR ---
Sedation cut by 50% per MD Cihn for plan to extubate to BiPap - Patience RT here and preparing for plan OG tube set to low intermittant suction: 400mL out of tube feed colored Ultrasound of right arm being completed
--- NOTE | 2019-02-21 10:56 | NUR ---
Court Registry Officer attended clinical rounds with the team. Patient hopefully to be extubated today. SW to continue to follow.
--- NOTE | 2019-02-21 11:35 | NUR ---
MD Raakn and MD Chin notified of right upper extremity ultrasound results of a DVT. Orders will be imputed by hospitalist team
[2019-02-21 12:20] LABS: PARTIAL THROMBOPLASTIN TIME 25.4 SECONDS (26.0-37.0)
--- NOTE | 2019-02-21 13:32 | NUR ---
PT TO BE EXTUBATED TO BIPAP. PT SUCTIONED AT THIS TIME. PT ALERT AND FOLLOWED COMMAND FOR NIF. -38 AT THIS TIME.
--- NOTE | 2019-02-21 13:38 | NUR ---
OG tube discontinued with extubation
--- NOTE | 2019-02-21 13:38 | NUR ---
Pt extubated to BiPap with Patience,RT, pt tolerated extuabtion well with no complications, HTN noted and cardene gtt titrated. Pt stating "I don't want to wear that BiPap mask". Education provided by RT and myself - pt agreeable. ABG to be completed at 1500. Call light in reach
--- NOTE | 2019-02-21 14:40 | NUR ---
Pt refusing BiPap at this time. Education provided - continues to refuse. OxyMask applied at 10L/min to titrate. Pt alert and oriented
--- NOTE | 2019-02-21 15:38 | NUR ---
Pt continues to refuse BiPap - pt now refusing external oxygen via OxyMask or Nasal Cannula. TASHA Booth assisting with encouraging pt to wear oxygen. Pt able to state name, , exactly how many days she was on ventilator, daughters name, location: she is stating that she would like to go home as soon as possible and that she does not want to be put back on the ventilator. MD Chin notified. Pt educated on Do Not Intubate status change - pt agrees and re-states back DNI status. Daughter called in at 1500 and states she will be coming to visit within the hour - pt updated.
--- NOTE | 2019-02-21 15:39 | NUR ---
Pt was briefly oreinted as stated in aforementioned note - pt became disoriented to situation and location stating "I dont need oxygen, I also do not need any antibiotics". 1615 MD Chin called to notify pt continuing to refuse medication and pt is atempting to slide out of bed. Aggitation PRN orders obtained. Patience,RT in room helped reorient pt and situate in bed with HOB elevated. After ativan and verbal orders from MD Chin to double the Precedex gtt and titrate to RASS of 0 pt agreeable to BiPap. 1645 pt resting quietly on BiPap in bed, HOB 30degrees, SpO2 94-98% on 60%FiO2 - MD Chin updated via voicemail at 1634
[2019-02-21 15:56] LABS: ARTERIAL BLD GAS O2 SATURATION 89.7 % (92-100); ARTERIAL BLD GAS TCO2 CT 34.1; ARTERIAL BLOOD GAS HCO3 32.7 meq/L (22-26); ARTERIAL BLOOD GAS PCO2 45.6 mmHg (35-45); ARTERIAL BLOOD GAS PO2 53.4 mmHg (80-100); ARTERIAL BLOOD GAS pH 7.47 (7.35-7.45)
--- NOTE | 2019-02-21 19:00 | NUR ---
Bedside report completed with TASHA Domingo - all lines traced, gtt's confirmed, hematuria observed together, BiPap settings observed, orders, labs and vital signs reviewed. All questions answered.
--- NOTE | 2019-02-21 20:00 | NUR ---
PATIENT IS UNCOOPERATIVE, DOES NOT WANT TO BE TOUCH, CONFUSED SPEECH, AND WHEN LEFT ALONE IS SLEEPY.. WILL CONTINUE TO OBSERVE, BIPAP IN PLACE ON FACE
[2019-02-21 23:06] LABS: PARTIAL THROMBOPLASTIN TIME 164.2 SECONDS (26.0-37.0)
[2019-02-22] VITALS (13 sets, daily range): BP systolic 127–172; BP diastolic 67–96; PULSE 67–93; TEMP 97.6–98.5
[2019-02-22 01:16] LABS: PARTIAL THROMBOPLASTIN TIME 63.7 SECONDS (26.0-37.0)
--- NOTE | 2019-02-22 04:00 | NUR ---
URINE RED CALLED ORDERED LABS, PATIENT RESTLESS IN BED DOES NOT PULL AT O2 MASK JUS DOESNT WANT TO BE TOUCHED AND WANTS TO LEAVE, HOWEVER PATIENT MAKES NO MOVEMENT TO GET OUT OF BED
[2019-02-22 04:18] LABS: PARTIAL THROMBOPLASTIN TIME 100.8 SECONDS (26.0-37.0)
[2019-02-22 04:19] LABS: HEMATOCRIT 40.9 % (37.0-47.0); HEMOGLOBIN 13.7 g/dl (12.5-16.0); MEAN CELL VOLUME 101 fl (80.0-100.0); MEAN CORPUSCULAR HEMOGLOBIN 34 pg (27.0-31.0); MEAN CORPUSCULAR HGB CONC 34 g/dl (33.0-37.0); MEAN PLATELET VOLUME 10.9 fl (7.4-10.4); PLATELET COUNT 148 K/mm3 (130-400); RED BLOOD COUNT 4.07 M/mm3 (4.10-5.30); REDCELL DISTRIBUTION WIDTH-CV 13.8 % (11.5-14.5)
[2019-02-22 04:30] LABS: CALCIUM 9.1 mg/dL (8.4-10.2); CREATININE, serum 1.12 (0.52-1.25); POTASSIUM 3.7 mmol/L (3.4-5.0)
[2019-02-22 05:08] LABS: COLLECTION METHOD CATHETER
[2019-02-22 05:17] LABS: BAND 3 % (0-10); LYMPHOCYTE 4 % (20.0-51.0); NEUTROPHILS 92 % (42.0-75.2); PLATELET ESTIMATE NORMAL (NORMAL)
[2019-02-22 05:18] LABS: MUCOUS Present /lpf; PH 6 (5-8); SQUAMOUS EPITHELIAL None Seen /hpf; URINE APPEARANCE Hazy; URINE BACTERIA Rare /hpf; URINE BILIRUBIN Negative (NEGATIVE); URINE BLOOD 3+ (NEGATIVE); URINE COLOR Yellow; URINE GLUCOSE Negative (NEGATIVE); URINE KETONE Negative (NEGATIVE); URINE LEUKOCYTE ESTERASE Trace (NEGATIVE); URINE NITRATE Negative (NEGATIVE); URINE PROTEIN(semi-quant) 1+ (NEGATIVE); URINE RBC >50 /hpf; URINE UROBILINOGEN Negative (NEGATIVE); URINE WBC None Seen /hpf
[2019-02-22 05:25] LABS: ARTERIAL BLD GAS O2 SATURATION 98.2 % (92-100); ARTERIAL BLD GAS TCO2 CT 35.3; ARTERIAL BLOOD GAS BASE EXCESS 8.7 (-2-2); ARTERIAL BLOOD GAS HCO3 33.8 meq/L (22-26); ARTERIAL BLOOD GAS PCO2 48.2 mmHg (35-45); ARTERIAL BLOOD GAS pH 7.46 (7.35-7.45)
[2019-02-22 06:20] LABS: PARTIAL THROMBOPLASTIN TIME 60.4 SECONDS (26.0-37.0)
--- NOTE | 2019-02-22 07:49 | NUR ---
Report received from Ronni CORDOVA and care resumed.
--- NOTE | 2019-02-22 09:15 | NUR ---
PICC intact right upper arm. With sterile technique right upper arm PICC dressing change done with insertion site cleansed with ChloraPrep 1, chlorhexidine impregnated disc applied, skin prep, StatLock, and Tegaderm applied. Reviewed ultrasound report. Patient does have less swelling in right hand today compared to yesterday. Patient's right arm is soft and supple. Right arm is still swollen. No other concerns.
--- NOTE | 2019-02-22 09:15 | NUR ---
Dr Lui in to see pt.
--- NOTE | 2019-02-22 10:05 | NUR ---
Dr Bledsoe in to see pt at this time.
--- NOTE | 2019-02-22 11:40 | NUR ---
Dr Lui called for order clarification.
--- NOTE | 2019-02-22 12:15 | NUR ---
Heparin drip on hold for 2 hours due to elevated HepXa.
--- NOTE | 2019-02-22 14:12 | NUR ---
Contacted Roxanne with infection control. She reviewed chart and pt and stated ok to d/c droplet precautions at this time.
--- NOTE | 2019-02-22 19:05 | NUR ---
Bedside report received from TASHA Shemran. Patient restless in bed and asking for water. Oral swabs provided. Patient refused to allow staff to put back on BIPAP or other supplemental oxygen. After multiple attempts at explaining the importance of wearing oxgyen patient allowed staff to replace Bipap.
--- NOTE | 2019-02-22 19:23 | NUR ---
Report given to Lizbeth CORDOVA and care transfered.
[2019-02-23] VITALS (10 sets, daily range): BP systolic 124–168; BP diastolic 74–112; PULSE 60–79; TEMP 97.4–98.8
[2019-02-23 00:16] LABS: PARTIAL THROMBOPLASTIN TIME 39.6 SECONDS (26.0-37.0)
--- NOTE | 2019-02-23 01:19 | NUR ---
Chandrika resting in bed quietly; tolerating BIPAP well at this time. Will continue to monitor.
--- NOTE | 2019-02-23 04:30 | NUR ---
Patient has occasional episodes of increased anxiety and agitation; pulls at mask and yells for water. Oral swabs given frequently. Precedex titrated up as needed.
[2019-02-23 07:26] LABS: HEMATOCRIT 40.5 % (37.0-47.0); HEMOGLOBIN 13.2 g/dl (12.5-16.0); MEAN CELL VOLUME 101 fl (80.0-100.0); MEAN CORPUSCULAR HEMOGLOBIN 33 pg (27.0-31.0); MEAN CORPUSCULAR HGB CONC 33 g/dl (33.0-37.0); MEAN PLATELET VOLUME 11.3 fl (7.4-10.4); PLATELET COUNT 138 K/mm3 (130-400); REDCELL DISTRIBUTION WIDTH-CV 13.3 % (11.5-14.5)
--- NOTE | 2019-02-23 07:26 | NUR ---
Report received from Lizbeth CORDOVA and care resumed.
[2019-02-23 07:43] LABS: CALCIUM 8.7 mg/dL (8.4-10.2); CREATININE, serum 1.08 (0.52-1.25); MAGNESIUM 2.7 mg/dL (1.6-2.3); POTASSIUM 3.8 mmol/L (3.4-5.0)
[2019-02-23 08:03] LABS: BAND 5 % (0-10); LYMPHOCYTE 8 % (20.0-51.0); METAMYELOCYTE 1 % (0-0); NEUTROPHILS 84 % (42.0-75.2); PLATELET ESTIMATE NORMAL (NORMAL)
[2019-02-23 09:43] LABS: ALBUMIN 3.3 gm/dL (3.5-5.0); BILIRUBIN UNCONJUGATED 0.6 mg/dL (0.0-1.1); BILIRUBIN,DIRECT 0.5 mg/dL (0.0-0.4); BILIRUBIN,TOTAL 1.1 mg/dL (0.0-1.0)
[2019-02-23 09:44] LABS: TOTAL PROTEIN 6.4 gm/dL (6.4-8.2)
[2019-02-23 10:04] LABS: ARTERIAL BLD GAS O2 SATURATION 93.5 % (92-100); ARTERIAL BLOOD GAS BASE EXCESS 8.8 (-2-2); ARTERIAL BLOOD GAS HCO3 33.6 meq/L (22-26); ARTERIAL BLOOD GAS PCO2 46.3 mmHg (35-45); ARTERIAL BLOOD GAS PO2 65.8 mmHg (80-100); ARTERIAL BLOOD GAS pH 7.48 (7.35-7.45)
--- NOTE | 2019-02-23 10:15 | NUR ---
Dr Bledsoe in to see pt at this time.
--- NOTE | 2019-02-23 11:50 | NUR ---
Spoke with Dr Gonsales regarding plan of care. Will plan to start PO seroquel and decrease or wean off precedex as able. Ok to for to hav breaks of bipap as tolerated. Will continue to follow.
--- NOTE | 2019-02-23 13:50 | NUR ---
Pt more restless/combative. Pulling off O2 and hitting at staff trying to replace it. Dr Bledsoe called and PRN ativan orders received. Will continue to follow.
--- NOTE | 2019-02-23 16:30 | NUR ---
Dr Bledsoe here to follow up on orders. Will attempt to restart home PO meds for BP and dc sarahi hrutado. Will continue to follow.
--- NOTE | 2019-02-23 19:05 | NUR ---
Report given to Ronni CORDOVA and care transfered.
--- NOTE | 2019-02-23 20:00 | NUR ---
PATIENT ASLEEP EASY TO AWAKEN, COOPERATIVE, RAPID BREATHING UPON AWAKENING, ASKING FOR CLOTHES AND WANTS TO LEAVE THEN FORGETS AND BACK TO SLEEP
[2019-02-24] VITALS: BP 136/84; PULSE 63; TEMP 98.3
--- NOTE | 2019-02-24 | NUR ---
PATIENT TOOK EVENING MEDS, ALSO COMPLAINS OF WANTING TO LEAVE, AND FORGETS, SLEEPING WELL ON nc AT 5 L, REFUSES BIPAP, O2 SATS REMAIN 96 TO 100%
[2019-02-24 04:00] VITALS: BP 153/94; PULSE 55; TEMP 97.4
[2019-02-24 06:28] LABS: CALCIUM 8.6 mg/dL (8.4-10.2); CREATININE, serum 1.04 (0.52-1.25); MAGNESIUM 2.4 mg/dL (1.6-2.3); POTASSIUM 3.5 mmol/L (3.4-5.0)
[2019-02-24 06:39] LABS: HEMATOCRIT 38.2 % (37.0-47.0); HEMOGLOBIN 12.7 g/dl (12.5-16.0); MEAN CELL VOLUME 100 fl (80.0-100.0); MEAN CORPUSCULAR HEMOGLOBIN 33 pg (27.0-31.0); MEAN CORPUSCULAR HGB CONC 33 g/dl (33.0-37.0); MEAN PLATELET VOLUME 12.1 fl (7.4-10.4); PLATELET COUNT 131 K/mm3 (130-400); RED BLOOD COUNT 3.83 M/mm3 (4.10-5.30); REDCELL DISTRIBUTION WIDTH-CV 12.6 % (11.5-14.5)
[2019-02-24 08:00] VITALS: BP 150/96; PULSE 60; TEMP 97
[2019-02-24 08:02] LABS: BAND 5 % (0-10); BASOPHIL 1 % (0-2); LYMPHOCYTE 13 % (20.0-51.0); NEUTROPHILS 80 % (42.0-75.2); PLATELET ESTIMATE NORMAL (NORMAL)
--- NOTE | 2019-02-24 11:26 | NUR ---
CALL PLACED TO DIETARY REGARDING RESTARTING TUBE FEEDING.
--- NOTE | 2019-02-24 12:20 | NUR ---
PT PULLED OUT NG TUBE AND PULL OFF NASAL CANULA. PT REORIENTED AND OXYGEN REPLACED. ANGELIQUE ANGEL AND NOTIFIED OF NG BEING PULLED. OK TO LEAVE OUT PER . WILL HOLD OFF ON TUBE FEED AT THIS TIME.
--- NOTE | 2019-02-24 14:38 | NUR ---
Senior Web Engineer attended clinical rounds with the team. Hospitalist requested [facility] Evaluation. EUGENE spoke with TASHA Bonner who advised SW could not speak with patient at this time as patient is disoriented. SW spoke with patient's daughter, Marla about LTCH recommendation. Marla advised SW could send referral to [facility] in [place]. SW reviewed patient preference form and obtained verbal consent over the phone. EUGENE contacted Aidan at [facility] and faxed referral. SW to continue to follow.
[2019-02-24 16:00] VITALS: BP 137/74; PULSE 65; TEMP 98
[2019-02-24 20:00] VITALS: BP 108/55; PULSE 75; TEMP 98
--- NOTE | 2019-02-24 20:15 | NUR ---
Patient assessment completed and charted at this time, patient restless in bed, but easily redirected. Bed alarm in place, will continue to monitor.
[2019-02-25] VITALS: BP 93/66; PULSE 72
[2019-02-25 04:15] VITALS: BP 165/93; PULSE 57; TEMP 98.1
[2019-02-25 06:16] LABS: HEMATOCRIT 37.5 % (37.0-47.0); HEMOGLOBIN 12.8 g/dl (12.5-16.0); MEAN CELL VOLUME 97 fl (80.0-100.0); MEAN CORPUSCULAR HEMOGLOBIN 33 pg (27.0-31.0); MEAN CORPUSCULAR HGB CONC 34 g/dl (33.0-37.0); MEAN PLATELET VOLUME 11.6 fl (7.4-10.4); PLATELET COUNT 129 K/mm3 (130-400); RED BLOOD COUNT 3.87 M/mm3 (4.10-5.30); REDCELL DISTRIBUTION WIDTH-CV 12.3 % (11.5-14.5)
[2019-02-25 06:22] LABS: CALCIUM 8.9 mg/dL (8.4-10.2); CREATININE, serum 1.02 (0.52-1.25); MAGNESIUM 2.2 mg/dL (1.6-2.3); PHOSPHOROUS 3.6 mg/dL (2.5-4.5); POTASSIUM 3.6 mmol/L (3.4-5.0)
[2019-02-25 07:52] LABS: BAND 1 % (0-10); LYMPHOCYTE 6 % (20.0-51.0); NEUTROPHILS 92 % (42.0-75.2); PLATELET ESTIMATE DECREASED (NORMAL)
[2019-02-25 08:00] VITALS: BP 126/115; PULSE 83; TEMP 98.2
--- NOTE | 2019-02-25 08:00 | NUR ---
Pt alert and partial orientation to self - pt unable to state last name. Disoriented to place, time and location. Pt also unable to name general items on breakfast tray. Pt able to self feed with moderate difficulty getting food to mouth - no difficulty chewing or swallowing. Pt is also talking to self often - conversation confused. Bed alarm on, call light in reach
--- NOTE | 2019-02-25 10:07 | NUR ---
Powder Shoveler spoke with RN, Clarke who advised patient is disoriented and confused. SW contacted Shawnee at [facility] who advised when she runs patient's insurance, it comes back as a Medicare replacement plan but does not list which one. Shawnee also requested clinical updates and EUGENE provided via fax. EUGENE left message for Shayla, Financial Counselor. EUGENE also attempted to contact [facility] where patient lives to gather baseline information. EUGENE left a message. EUGENE contacted patient's daughter, Marla to provide update on pending [facility] referral. SW to continue to follow.
--- NOTE | 2019-02-25 10:12 | NUR ---
Initial visit; Patient thanked Program Project Manager for looking in on her and praying with her. Program Project Manager wished her well and God's blessings.
--- NOTE | 2019-02-25 10:30 | NUR ---
PICC intact right upper arm with sterile dressing change done with insertion site cleansed with chloraprep x 1, chlorhexidine impregnated disk applied, skin prep, stat lock, and tegaderm applied. moderate amount of reddish drainage on disk. no further drainage noted. no signs or symptoms of further complications. no concerns voiced. wrapped with karolina to protect catheter.
--- NOTE | 2019-02-25 11:27 | NUR ---
PT in room with pt - with heavy 1 assit pt up to chair - linens changed - then pt placed back in bed - call light in reach - bed alarm on. Pt tolerated activity well with no shortness of breath or change in vital signs
[2019-02-25 12:00] VITALS: BP 101/57; PULSE 80; TEMP 98.2
--- NOTE | 2019-02-25 15:18 | NUR ---
Coil Winding Machines Set Up Mechanic contacted Shayla, Financial Counselor who advised upon further investigation patient has [employer]. EUGENE contacted Shawnee at [facility] who advised she will contact [employer] to begin authorization. Shawnee advised she will let EUGENE know when authorization is received. Shawnee stated if it is not received today, it will likely be Thursday. EUGENE provided this update to Ilda, Nurse Practitioner. EUGENE also contacted patient's daughter, Marla Yu (ph#[phone]) to provide update. SW to continue to follow.
--- NOTE | 2019-02-25 15:42 | NUR ---
Furnace Reliner received a phone call from Maria Alejandra at [facility]. Maria Alejandra advised EUGENE could contact Tonie, Financial Services Internship at [facility]. EUGENE contacted Tonie at [phone] and left a message. EUGENE to continue to follow.
[2019-02-25 16:00] VITALS: BP 120/64; PULSE 68; TEMP 97.9
--- NOTE | 2019-02-25 17:30 | NUR ---
Pt has made multiple attempts to climb out of bed today sounding the Bed-Alarm. Pt reoriented, pt unable to repeat back teaching. MD Chin and MD Emmanuel aware.
--- NOTE | 2019-02-25 19:20 | NUR ---
recieved bedside report from TASHA Mir at this time.
[2019-02-25 20:00] VITALS: BP 148/85; PULSE 75; TEMP 98.9
[2019-02-26] VITALS (7 sets, daily range): BP systolic 101–169; BP diastolic 73–105; PULSE 67–87; TEMP 97.5–98.9
--- NOTE | 2019-02-26 | NUR ---
urine had some blood tinge to it however pt had been pulling on cather because during my midnight assessment i found the stat lock on her right thigh broken. that was replaced and education was taken place to leave morgan catheter alone. pt did not verbalize understanding.
[2019-02-26 05:49] LABS: MEAN CELL VOLUME 94 fl (80.0-100.0); MEAN CORPUSCULAR HEMOGLOBIN 33 pg (27.0-31.0); MEAN CORPUSCULAR HGB CONC 35 g/dl (33.0-37.0); MEAN PLATELET VOLUME 11.7 fl (7.4-10.4); PLATELET COUNT 116 K/mm3 (130-400); RED BLOOD COUNT 3.93 M/mm3 (4.10-5.30); REDCELL DISTRIBUTION WIDTH-CV 12.2 % (11.5-14.5)
[2019-02-26 05:54] LABS: CREATININE, serum 1.03 (0.52-1.25); POTASSIUM 3.7 mmol/L (3.4-5.0)
--- NOTE | 2019-02-26 07:45 | NUR ---
Patient removed nebulizer mask 3 times. The third time she refused to have it placed back on her face.
--- NOTE | 2019-02-26 08:00 | NUR ---
Pt alert, restless and oriented to self. Pt attemtping occasionally to roll out of bed, bed alarm on, side rails up X3. Reorientation provided. PICC line IV tubing secured and hidden, pt removing blood pressure cuff and SpO2 monitoring device. Cullinary Ambassador who brought breakfast tray states she knows pt and states pt's last name is Wong. notified of contradiction
--- NOTE | 2019-02-26 08:00 | NUR ---
Pt's daughter at bedside, MD Emmanuel and MD Chin at bedside as well giving update and plan of care. Pt's daughter Marla states that pt's last name is Benitez not Maria Luisa - and that Marla told multiple staff members on previous days she has visited (not myself however) that Maria Luisa is her last name, her assisted living location, she is on Psychiatric medications at home, and that at baseline when properly taking psych meds pt is independent and able to hold a conversation without difficutly. MD Chin and MD Emmanuel both aware of this
[2019-02-26 09:45] LABS: BAND 3 % (0-10); LYMPHOCYTE 3 % (20.0-51.0); METAMYELOCYTE 1 % (0-0); MYELOCYTE 1 % (0-0); NEUTROPHILS 91 % (42.0-75.2); PLATELET ESTIMATE DECREASED (NORMAL)
--- NOTE | 2019-02-26 17:36 | NUR ---
Patients nurse approached SW and reported that daughter was frusterated and claimed that the name listed for her mother was not correct. Nurse asked if SW would speak with daughter. SW attempted to engage daughter who said her name was Payton (she did not provide a contact number). Payton indicated that her mothers correct name was Naomie Yu, and she wondered why it was not listed as such. SW tried to obtain more information however patients daughter indicated that she had to go to work. Patient was incoherent and made unrecognizable comments. Payton did report that she spoke with Caryn and that situationw as being " taken care of."
[2019-02-27] VITALS (9 sets, daily range): BP systolic 124–176; BP diastolic 58–94; PULSE 61–102; TEMP 97.4–99.2
[2019-02-27 06:34] LABS: HEMOGLOBIN 12.7 g/dl (12.5-16.0); MEAN CELL VOLUME 94 fl (80.0-100.0); MEAN CORPUSCULAR HEMOGLOBIN 33 pg (27.0-31.0); MEAN CORPUSCULAR HGB CONC 35 g/dl (33.0-37.0); MEAN PLATELET VOLUME 11.5 fl (7.4-10.4); PLATELET COUNT 116 K/mm3 (130-400); RED BLOOD COUNT 3.87 M/mm3 (4.10-5.30); REDCELL DISTRIBUTION WIDTH-CV 12.4 % (11.5-14.5)
[2019-02-27 06:44] LABS: ALBUMIN 3.1 gm/dL (3.5-5.0); BILIRUBIN,TOTAL 0.9 mg/dL (0.0-1.0); CREATININE, serum 1.03 (0.52-1.25); MAGNESIUM 1.7 mg/dL (1.6-2.3); POTASSIUM 3.6 mmol/L (3.4-5.0); TOTAL PROTEIN 5.9 gm/dL (6.4-8.2)
[2019-02-27 06:54] LABS: HEMATOCRIT 36.3 % (37.0-47.0)
--- NOTE | 2019-02-27 07:16 | NUR ---
GAVE REPORT TO ANJU Tan RN.
[2019-02-27 08:11] LABS: BAND 7 % (0-10); LYMPHOCYTE 3 % (20.0-51.0); NEUTROPHILS 89 % (42.0-75.2)
[2019-02-27 08:13] LABS: PLATELET ESTIMATE DECREASED (NORMAL)
--- NOTE | 2019-02-27 20:00 | NUR ---
PATIENT MOVES ABOUT BED TALKING TO AN EMPTY ROOM, PILLS MADE IT TO MOUTH PATIENT WOULDNT SWALLOW, SPIT FRAGMENTS INTO BLANKET, REFUSES WATER NOW WILL CONTINUE TO OBSERVE
[2019-02-28] VITALS (10 sets, daily range): BP systolic 103–154; BP diastolic 28–89; PULSE 84–107; TEMP 97.5–99.6
--- NOTE | 2019-02-28 00:01 | NUR ---
PATIENT ADMINISTERED 0.5 MG ATIVAN IV, FOR BEING UNCOOPERATIVE, TALKING LOUDLY IN EMPTY ROOM, UNABLE TO CALM SELF
--- NOTE | 2019-02-28 00:08 | NUR ---
PATIENT CONTINUES TO BE RESTLESS, WILL PULL AT MEDICAL EQUIPMENT IF LEFT ALONE (IV TUBING, MCDONALD CATH), MEDS ADMINISTERED, WILL CONTINUE TO MONITOR
--- NOTE | 2019-02-28 02:13 | NUR ---
PATIENT IN ROOM AWAKE TALKING LOUDLY, CALMS SELF WHEN STAFF APPROACHES, FOUD TO BE CRYING WHEN QUIET, DENIES PAIN, TALKS ABOUT SISTER.
[2019-02-28 06:29] LABS: ALBUMIN 2.8 gm/dL (3.5-5.0); BILIRUBIN,TOTAL 0.7 mg/dL (0.0-1.0); CREATININE, serum 1.04 (0.52-1.25); MAGNESIUM 1.7 mg/dL (1.6-2.3); PHOSPHOROUS 2.8 mg/dL (2.5-4.5); POTASSIUM 3.4 mmol/L (3.4-5.0); TOTAL PROTEIN 5.4 gm/dL (6.4-8.2)
[2019-02-28 06:35] LABS: PRE ALBUMIN 16.5 mg/dL (17.6-36.0)
[2019-02-28 07:49] LABS: BASO % 0.1 % (0.0-2.0); EOS % 0.1 % (0-4.0); GRAN # 17.1 (1.4-6.5); LYMPH # 2.7 (1.2-3.4); LYMPH % 12.9 % (20.0-51.0); MEAN CELL VOLUME 97 fl (80.0-100.0); MEAN CORPUSCULAR HGB CONC 34 g/dl (33.0-37.0); MEAN PLATELET VOLUME 12.9 fl (7.4-10.4); MONO # 0.8 (0.1-0.6); MONO % 3.8 % (1.7-9.3); PLATELET COUNT 128 K/mm3 (130-400); RED BLOOD COUNT 3.18 M/mm3 (4.10-5.30); REDCELL DISTRIBUTION WIDTH-CV 12.7 % (11.5-14.5)
[2019-02-28 07:54] LABS: HEMATOCRIT 30.7 % (37.0-47.0); HEMOGLOBIN 10.5 g/dl (12.5-16.0); MEAN CORPUSCULAR HEMOGLOBIN 33 pg (27.0-31.0)
--- NOTE | 2019-02-28 10:47 | NUR ---
RETAIL PERSONAL BANKER student contacted Shayla, Financial Counselor to inquire about the patient's official name. Shayla reports the name used in the EMR is retrieved from the patient's current drivers license. The patients most recent issued drivers licensed issued on 06/09/2018 reads the patient's name as mEmy Glass. RETAIL PERSONAL BANKERDevante nagy contacted the patient's daughter, Payton to inform her of this information. ANDREY nagy faxed updates to [employer]. Aidan reports [employer] needed [employer] needed to fax updates to them. RETAIL PERSONAL BANKER student contacted Chiquita GÓMEZ. She reports she will sent updates.
--- NOTE | 2019-02-28 11:11 | NUR ---
MD Geronimo called to follow up - MD busy at this time seeing pts in office - will begin rounds in hosptial at 1500 today.
--- NOTE | 2019-02-28 16:00 | NUR ---
MD Geronimo here for consultation
--- NOTE | 2019-02-28 18:25 | NUR ---
MD Roosevelt and MalouGravedigger notifed pt has been refusing to eat most meals.
--- NOTE | 2019-02-28 21:00 | NUR ---
PT AWAKE, RESPONDS TO HER NAME ONLY AND DOES NOT ANSWER MOST QUESTIONS. PT WEAK BUT ABLE TO TURN SIDE TO SIDE WITH ASSISTANCE. PT DENIES PAIN. PT WAS ABLE TO SWALLOW PILLS ONE AT A TIME WITH NO PROBLEMS. PT HAS NO APPETITE AT ALL DESPITE ENCOURAGEMENT. WILL CONTINUE TO MONITOR.
--- NOTE | 2019-02-28 22:25 | NUR ---
2200 - PT HAD AN EPISODE OF PROJECTILE VOMITING, BROWN IN COLOR AND WATERY IN CONSISTENCY. WHEN PT ASKED IF SHE IS NAUSEOUS, PT NOT ANSWERING QUESTIONS. PT AWKE, LAYING IN BED AND WATCHING TV. LUNGS SOUNDS CLEAR AND OTHERWISE APPERS TO BE OKAY. DR. MIJARES CALLED AND UPDATED AND ORDERED ZOFRAN. WILL GIVE AND WILL CONTINUE TO MONITOR.
[2019-03-01] VITALS (31 sets, daily range): BP systolic 42–132; BP diastolic 23–85; PULSE 65–110; TEMP 97.6–99
--- NOTE | 2019-03-01 01:57 | NUR ---
PT HAS A LUMP ON RIGHT THIGH/GROIN AREA THAT IS HARD TO PALPATE AND HAS SOME BRUISING IN IT. DORSAL AND TIBIAL PULSES PRESENT ON THE AFFECTED EXTREMITY BUT WEAK JUST LIKE BASELINE ASSESSMENT AT BEGINNING OF SHIFT. WILL RELAY THIS TO ONCOMING DAY SHIFT NURSE.
--- NOTE | 2019-03-01 07:30 | NUR ---
Report received from Arabella CORDOVA and care resumed.
[2019-03-01 08:07] LABS: MEAN CELL VOLUME 98 fl (80.0-100.0); MEAN CORPUSCULAR HGB CONC 35 g/dl (33.0-37.0); PLATELET COUNT 126 K/mm3 (130-400); RED BLOOD COUNT 2.44 M/mm3 (4.10-5.30); REDCELL DISTRIBUTION WIDTH-CV 13.2 % (11.5-14.5)
[2019-03-01 08:12] LABS: HEMATOCRIT 23.8 % (37.0-47.0); HEMOGLOBIN 8.2 g/dl (12.5-16.0); MEAN CORPUSCULAR HEMOGLOBIN 34 pg (27.0-31.0)
[2019-03-01 08:17] LABS: CREATININE, serum 1.42 (0.52-1.25); MAGNESIUM 1.9 mg/dL (1.6-2.3); PHOSPHOROUS 4.8 mg/dL (2.5-4.5); POTASSIUM 4.4 mmol/L (3.4-5.0)
[2019-03-01 08:32] LABS: BAND 5 % (0-10); LYMPHOCYTE 5 % (20.0-51.0); METAMYELOCYTE 1 % (0-0); PLATELET ESTIMATE NORMAL (NORMAL)
[2019-03-01 08:33] LABS: NEUTROPHILS 87 % (42.0-75.2)
--- NOTE | 2019-03-01 09:50 | NUR ---
Dr Benitez in to see pt at this time. Did report increased tenderness in abdomen and right upper thigh to dr. Will continue to follow.
--- NOTE | 2019-03-01 10:15 | NUR ---
PICC intact right upper arm with sterile dressing change done with insertion site cleansed with chloraprep x 1, chlorhexidine impregnated disk applied, skin prep, stat lock, and tegaderm applied. no signs or symptoms of IV complications noted. no concerns voiced. re-wrapped with karolina to protect catheter.
--- NOTE | 2019-03-01 12:00 | NUR ---
CALLED TO ICU 3 BY TASHA LOPEZ TO EVALUATE PT'S RESPIRATORY STATUS. PT'S OVERALL APPEARANCE WAS DIFFERENT FROM PREVIOUS TREATMENT. INCREASED RR AND WOB. PT LESS RESPONSIVE THAN USUAL. ABG ATTEMPTED AT THIS TIME (ENDED UP BEING A VBG). AFTER DRAWING THE BLOOD PT BECAME AGONAL AND HR DROPPED. TASHA LOPEZ AND I BOTH PRESENT AT TIME. PT IMMEDIATELY MANUALLY VENTILATED WITH AMBU BAG AND MASK AND ASSISTANCE CALLED FOR. PT WAS INTUBATED BY ANESTHESIA AND PT PLACED ON CHARTED VENT SETTINGS. CXR POST INTUBATION OBTAINED. BBSH AND NO AIR HEARD OVER STOMACH. CONSISTANT COLOR CHANGE ON CO2 DETECTOR AND CONDENSATION SEEN IN OETT. 7.5 OETT SECURED 22@TEETH. DR. KIMBROUGH TELEPHONED WITH SETTINGS. NO CHANGES AT THIS TIME. ABG PENDING.
--- NOTE | 2019-03-01 12:20 | NUR ---
Entered room to give medications and pt more tachypnic. RT called for PRN treatment or orders. RT at bedside. Dr Benitez also called and updated on pt status. ABG orders received. RN and RT in room attempting ABG when pt breathing becoming more agonal and pt not responding. Pt laid flat and began to bag per RT. Dr Benitez called and on unit. Verbal order received to intubate pt. Anesthesia paged and at bedside. Pt intubated with 7.5 ET tube at 1155. OG also placed. Placement verified by x-ray. Dr Albert called and updated on pt status. Further orders received. Will continue to follow.-
[2019-03-01 12:25] LABS: MEAN CORPUSCULAR HGB CONC 32 g/dl (33.0-37.0); MEAN PLATELET VOLUME 12.5 fl (7.4-10.4); PLATELET COUNT 96 K/mm3 (130-400); RED BLOOD COUNT 1.71 M/mm3 (4.10-5.30); REDCELL DISTRIBUTION WIDTH-CV 13.7 % (11.5-14.5)
[2019-03-01 12:28] LABS: HEMATOCRIT 17.8 % (37.0-47.0); HEMOGLOBIN 5.7 g/dl (12.5-16.0); MEAN CELL VOLUME 104 fl (80.0-100.0); MEAN CORPUSCULAR HEMOGLOBIN 33 pg (27.0-31.0)
[2019-03-01 12:34] LABS: CALCIUM 6.7 mg/dL (8.4-10.2); CREATININE, serum 1.92 (0.52-1.25); MAGNESIUM 2.1 mg/dL (1.6-2.3); POTASSIUM 5.7 mmol/L (3.4-5.0)
[2019-03-01 12:40] LABS: BAND 23 % (0-10); LYMPHOCYTE 4 % (20.0-51.0); NEUTROPHILS 72 % (42.0-75.2); PLATELET ESTIMATE DECREASED (NORMAL)
[2019-03-01 12:41] LABS: ANISOCYTOSIS 1+; HYPOCHROMIA 2+
[2019-03-01 12:48] LABS: TROPONIN-I 0.069 ng/mL (0.000-0.035)
--- NOTE | 2019-03-01 13:10 | NUR ---
To CT at 1240 per bed with 2 nurses and RT present. Tolerated test well. Returned to room 3 and placed back on monitor. Will continue to follow.
--- NOTE | 2019-03-01 13:55 | NUR ---
Aidan from [facility] [employer] reports [facility] has denied the patient for LTAC. director construction services will continue to follow. AGILE PROJECT MANAGER student contacted the patient's daughter, Payton to inform her of the denial from [employer]. The patient's nurse contacted Payton prior to AGILE PROJECT MANAGER student phone call to update Payton on the patient being intubated and to discuss the patient's critical condition. director construction services will continue to follow.
--- NOTE | 2019-03-01 14:02 | NUR ---
Dr Albert and Dr Benitez in to see pt at this time.
[2019-03-01 14:04] LABS: ARTERIAL BLD GAS O2 SATURATION 99.3 % (92-100); ARTERIAL BLD GAS TCO2 CT 12.1; ARTERIAL BLOOD GAS BASE EXCESS -15.4 (-2-2); ARTERIAL BLOOD GAS HCO3 11.2 meq/L (22-26); ARTERIAL BLOOD GAS PCO2 29.1 mmHg (35-45); ARTERIAL BLOOD GAS PO2 186.1 mmHg (80-100)
--- NOTE | 2019-03-01 14:20 | NUR ---
DR. KIMBROUGH AT BEDSIDE. VENT CHANGES MADE POST INTUBATION ABG RESULTS. PT SUCTIONED FOR A MODERATE AMOUNT OF THINK DARK BROWN SECRETIONS AFTER LAVAGING WITH SOME SALINE. SAMPLE SENT TO LAB FOR CULTURING.
[2019-03-01 15:03] LABS: HEMOGLOBIN 7.9 g/dl (12.5-16.0)
--- NOTE | 2019-03-01 15:10 | NUR ---
Pt's daughter Payton at bedside at this time and being updated on pt status by Dr Albert.
--- NOTE | 2019-03-01 15:18 | NUR ---
Prema with [facility] at bedside for PICC placement at this time.
--- NOTE | 2019-03-01 16:30 | NUR ---
Unable to obtain BP, Dr Albert at bedside and stated to increase levophed drip.
[2019-03-01 16:46] LABS: ARTERIAL BLD GAS O2 SATURATION 94.5 % (92-100); ARTERIAL BLD GAS TCO2 CT 14.4; ARTERIAL BLOOD GAS BASE EXCESS -12.8 (-2-2); ARTERIAL BLOOD GAS HCO3 13.4 meq/L (22-26); ARTERIAL BLOOD GAS PO2 76.3 mmHg (80-100); ARTERIAL BLOOD GAS pH 7.24 (7.35-7.45)
--- NOTE | 2019-03-01 17:01 | NUR ---
No sedation vacation at this time, to unstable and BPs too low per Dr Albert.
--- NOTE | 2019-03-01 17:15 | NUR ---
Received a phone call from the intensive care unit with concern by clinical services manager of left upper arm PICC tip location. Reviewed chest x-ray on synapse. visited with Dr. Agudelo and Dr. Albert regarding PICC left arm chest x ray. Portable chest x-ray repeated. Left arm PICC catheter tip location is coiled. With sterile technique left upper arm PICC dressing change done with insertion site cleansed with ChloraPrep 1, catheter pulled to 5 cm marking, chest x-ray, catheter with noted fishhook appearance. Catheter flushed with 10 mL normal saline. Chest x-ray repeated. Left upper arm PICC catheter tip in the lower SVC. Pressure applied to sites. Side is in constantly. Chlorhexidine impregnated disc applied, skin prep, StatLock and Tegaderm applied. Extra Tegaderm applied on top of dressing. 4 x 4's applied to reinforce on top of Tegaderm. Wrapped with an Harry. Primary care nurse informed.
[2019-03-01 18:02] LABS: HEMATOCRIT 31.6 % (37.0-47.0); HEMOGLOBIN 10.7 g/dl (12.5-16.0)
[2019-03-01 18:05] LABS: CALCIUM 7.6 mg/dL (8.4-10.2); CREATININE, serum 2.01 (0.52-1.25); MAGNESIUM 1.9 mg/dL (1.6-2.3); PHOSPHOROUS 7.5 mg/dL (2.5-4.5); POTASSIUM 5.4 mmol/L (3.4-5.0)
[2019-03-01 18:43] LABS: MEAN CORPUSCULAR HGB CONC 34 g/dl (33.0-37.0); PLATELET COUNT 80 K/mm3 (130-400); REDCELL DISTRIBUTION WIDTH-CV 14.4 % (11.5-14.5)
[2019-03-01 18:45] LABS: INR 1.9 (0.8-3.0)
[2019-03-01 18:48] LABS: PARTIAL THROMBOPLASTIN TIME 44.5 SECONDS (26.0-37.0)
[2019-03-01 18:50] LABS: HEMATOCRIT 31.5 % (37.0-47.0); HEMOGLOBIN 10.7 g/dl (12.5-16.0); MEAN CELL VOLUME 96 fl (80.0-100.0); MEAN CORPUSCULAR HEMOGLOBIN 32 pg (27.0-31.0)
--- NOTE | 2019-03-01 19:05 | NUR ---
RECEIVED REPORT FROM TASHA LOPEZ. ART LINE AND CVP NOTED. BSWR IN PLACE AND GOOD COLORING AND CAP REFILL. ETT 7.5, 22 AT THE TEETH. VENT SETTINGS: TV 500, RATE 25, PEEP 5, FIO2 60%. OG TO LIS WITH DARK BROWN DRAINAGE NOTED IN TUBING. SEE GTT TITRATION INTERVENTIONS. RT UPPER THIGH MEASURED FOR HEMATOMA AT 33INCHES. FC PATENT AND DRAINING MINIMALLY TO GRAVITY, PER REPORT AWARE. VSS.
--- NOTE | 2019-03-01 19:19 | NUR ---
Report given to Huma CORDOVA and care transfered.
[2019-03-01 19:20] LABS: ALBUMIN 2.1 gm/dL (3.5-5.0); BILIRUBIN,TOTAL 1.6 mg/dL (0.0-1.0); TOTAL PROTEIN 4.4 gm/dL (6.4-8.2)
--- NOTE | 2019-03-01 19:27 | NUR ---
DAUGHTER, GENARO, CALLED AND DISCUSSED WITH NURSE ABOUT NOT WANTING PT TO BE TRANSFERRED TO AT THIS TIME. EDUCATED DAUGHTER ON PT NEEDING HIGHER LEVEL OF CARE, DAUGHTER VERBALIZED UNDERSTANDING AND WOULD STILL NOT LIKE PT TO BE TRANSFERRED AT THIS TIME. DISCUSSED CODE STATUS WITH DAUGHTER. DAUGHTER STATES SHE WANTS US TO COTNINUE TO DO WHAT WWE ARE DOING AND TO CHEMICALLY TREAT BUT IF THE PT'S HEART WERE TO STOP BEATING, DO NOT DO COMPRESSIONS. SECOND RN VERIFICATION WITH TASHA LOPEZ.
--- NOTE | 2019-03-01 19:40 | NUR ---
DR KIMBROUGH NOTIFIED OF PT'S DAUGHTER'S WISHES AND REQUESTS, NEW ORDERS RECEIVED. OPERATIONS CLERK CONTACTED TO NOTIFY [facility] OF HOLD ON TRANSFER AT THIS TIME.
[2019-03-01 19:56] LABS: ARTERIAL BLOOD GAS BASE EXCESS -8.6 (-2-2); ARTERIAL BLOOD GAS HCO3 15.2 meq/L (22-26); ARTERIAL BLOOD GAS PCO2 26.7 mmHg (35-45); ARTERIAL BLOOD GAS PO2 110.8 mmHg (80-100); ARTERIAL BLOOD GAS pH 7.37 (7.35-7.45)
--- NOTE | 2019-03-01 21:35 | NUR ---
NOTIFIED DR MITCHELL OF LIVER ENZYMES, ABG RESULTS, CHANGE IN CODE STATUS, CHANGE IN TRANSFER STATUS, AND LOW TO NO UO. NO NEW ORDERS.
[2019-03-01 23:09] LABS: HEMATOCRIT 26.7 % (37.0-47.0); HEMOGLOBIN 9.5 g/dl (12.5-16.0)
[2019-03-02] VITALS: BP 111/62; PULSE 100; TEMP 98
[2019-03-02 00:15] VITALS: BP 111/62; PULSE 100
[2019-03-02 03:24] LABS: HEMATOCRIT 25.2 % (37.0-47.0); HEMOGLOBIN 9.1 g/dl (12.5-16.0)
[2019-03-02 04:00] VITALS: BP 103/63; PULSE 97; TEMP 98; TEMP 99
--- NOTE | 2019-03-02 04:00 | NUR ---
NOTIFIED DR MITCHELL OF PT'S NEURO STATUS CHANGE TO ONLY PAINFUL STIMULI TO ABDOMEN BUT NOT TO VERBAL STIMULI OF NAME, EYES LOOKING AWAY FROM EACH OTHER, NO UO FOR 4 HOURS, H&H, LA AND LUNG SOUND CHANGES. NO NEW ORDERS.
--- NOTE | 2019-03-02 05:15 | NUR ---
PT OPENS EYES TO VERBAL STIMULI AND EYES LOOKING IN THE SAME DIRECTION AT THIS TIME. PT DOES NOT ATTEMPT TO FOLLOW ANY OTHER SIMPLE COMMANDS.
[2019-03-02 05:44] VITALS: BP 132/69; PULSE 100
[2019-03-02 05:45] LABS: ARTERIAL BLD GAS O2 SATURATION 98.1 % (92-100); ARTERIAL BLD GAS TCO2 CT 20.3; ARTERIAL BLOOD GAS BASE EXCESS -2.8 (-2-2); ARTERIAL BLOOD GAS HCO3 19.5 meq/L (22-26); ARTERIAL BLOOD GAS PCO2 24.9 mmHg (35-45); ARTERIAL BLOOD GAS PO2 107.4 mmHg (80-100); ARTERIAL BLOOD GAS pH 7.51 (7.35-7.45)
[2019-03-02 07:25] LABS: MEAN CELL VOLUME 99 fl (80.0-100.0); MEAN CORPUSCULAR HGB CONC 34 g/dl (33.0-37.0); MEAN PLATELET VOLUME 13.4 fl (7.4-10.4); PLATELET COUNT 76 K/mm3 (130-400); RED BLOOD COUNT 2.86 M/mm3 (4.10-5.30); REDCELL DISTRIBUTION WIDTH-CV 16.2 % (11.5-14.5)
[2019-03-02 07:30] LABS: HEMATOCRIT 28.3 % (37.0-47.0); HEMOGLOBIN 9.5 g/dl (12.5-16.0); MEAN CORPUSCULAR HEMOGLOBIN 33 pg (27.0-31.0)
[2019-03-02 07:37] LABS: CREATININE, serum 2.69 (0.52-1.25); MAGNESIUM 1.8 mg/dL (1.6-2.3); POTASSIUM 4.9 mmol/L (3.4-5.0)
[2019-03-02 08:00] VITALS: BP 104/78; PULSE 98; TEMP 99.4
[2019-03-02 08:44] LABS: EOSINOPHIL 1 % (0-4); LYMPHOCYTE 5 % (20.0-51.0); PLATELET ESTIMATE DECREASED (NORMAL)
[2019-03-02 08:45] LABS: BAND 24 % (0-10); NEUTROPHILS 68 % (42.0-75.2)
--- NOTE | 2019-03-02 10:51 | NUR ---
station worker attended family meeting with Marla (daughter), Dr Albert, and Dr Bledsoe and patient's nurse. Marla's friend was present as well. Marla was able to verbalize that she and her two brothers (Wang #[phone] and Gurpreet #[phone]) have discussed patient's care and they are all in agreement that they want to extubate and move to comfort care, for patient. Marla states that patient had not completed written advance directives. Worker and physicians advised that all of patient's children will need to verbalize, to physician, that this is their wishes for patient. Dr Bledsoe will call sons and receive this information from them. Marla stated that patient's parents are both and there are only 3 living children as mentioned above. [facility] Le[facility] Associate [facility] met with Marla and patient. Robson, palliative care nurse was notified of the above information.
--- NOTE | 2019-03-02 11:10 | NUR ---
PICC contact left upper arm. Large amount of reddish drainage from PICC line. with sterile technique left upper arm PICC dressing change done with insertion site cleansed with ChloraPrep 3, skin prep, chlorhexidine impregnated disc applied, fibrin patch applied, StatLock, and Tegaderm applied. No further drainage noted. No other signs or symptoms of IV complications noted. Patient is unable to address any concerns. She is on the ventilator.
[2019-03-02 11:19] LABS: ARTERIAL BLD GAS TCO2 CT 21.3; ARTERIAL BLOOD GAS HCO3 20.5 meq/L (22-26); ARTERIAL BLOOD GAS PCO2 26.8 mmHg (35-45); ARTERIAL BLOOD GAS PO2 107.3 mmHg (80-100)
[2019-03-02 11:25] LABS: HEMATOCRIT 24.7 % (37.0-47.0)
[2019-03-02 12:00] VITALS: BP 126/65; PULSE 108; TEMP 99.1
--- NOTE | 2019-03-02 12:04 | NUR ---
Follow-up visit; Nurse contacted Trash Man as support to patient's daughter. Trash Man introduced herself and offered spiritual care to both daughter and prayed for patient. Trash Man will follow up when other family members arrive.
--- NOTE | 2019-03-02 14:51 | NUR ---
Follow-up visit; spoke with Emmy Gutiérrez's daughter, making sure she knows Protozoology Teacher is available when needed. Marla thanked .
--- NOTE | 2019-03-02 15:15 | NUR ---
PT EXTUBATED TO COMFORT CARE PER DR ATKINS'S ORDER. PT SUCTIONED PRIOR AND POST EXTUBATION. NO ISSUES.
--- NOTE | 2019-03-02 15:27 | NUR ---
PT MADE COMFORT CARE BY DAUGHTER AND TWO SONS. PLACED COMFORT CARE ORDERS. NOTIFIED OF FAMILIES DECISION. LEVOPHED TURNED OF AT 1513. PT GIVEN MORPHINE PRIOR TO EXTUBATION. DAUGHTER DENNIS BESIDE AND UPDATED ON PLAN AND ALL QUESTION ANSWERED. PT EXTUBATED AT 1515. ORAL CARE PROVIDED. DAGHTER BEDSIDE. PT GIVEN PRN ATIVAN. WILL CONTINUE TO MONITOR.
--- NOTE | 2019-03-02 15:53 | NUR ---
Dr Bledsoe spoke with all of patient's children and patient was extubated. Worker met with daughter, Marla, and offered emotional support and information. Marla chose [facility] and chose to leave the hospital prior to patient's passing.
--- NOTE | 2019-03-02 15:55 | NUR ---
PT PASSED AT 1555. NOTIFIED. PT'S DAUGHTER NOTIFIED AT 1602. COAT JOINER NOTIFIED.
--- NOTE | 2019-03-02 17:03 | NUR ---
VISHALN notified of patient , referral number [id number]. [facility] notifed.
--- NOTE | 2019-03-02 18:35 | NUR ---
Pt picked up by [facility].
== END 2019-03-02 18:33 | disposition expired | DRG 207 ==
LOC: COL.ER 16:12 → EDBEDREQ 18:13 → EDBEDREQTM 18:13 → ICU 19:50 → EDBEDREQSVC 19:58 → EDBEDREQTM 19:58 → EDBEDREQ 19:58 → ICU 02-28 13:13
PROVIDERS: Family Medicine; Internal Medicine; Internal Medicine Critical Care Medicine; Internal Medicine Pulmonary Disease; Nurse Practitioner Family; Physician Assistant; Student in an Organized Health Care Education/Training Program; ADMIT Hospitalist
PROC: 5A1955Z Respiratory Ventilation, Greater than 96 Consecutive Hours (ICD-10-PCS; principal; 2019-02-15)
PROC: 0BH17EZ Insertion of Endotracheal Airway into Trachea, Via Natural or Artificial Opening (ICD-10-PCS; 2019-02-15)
PROC: 02HV33Z Insertion of Infusion Device into Superior Vena Cava, Percutaneous Approach (ICD-10-PCS; 2019-02-15)
PROC: 0BH17EZ Insertion of Endotracheal Airway into Trachea, Via Natural or Artificial Opening (ICD-10-PCS; 2019-02-18)
PROC: 5A1945Z Respiratory Ventilation, 24-96 Consecutive Hours (ICD-10-PCS; 2019-02-18)
PROC: 02HV33Z Insertion of Infusion Device into Superior Vena Cava, Percutaneous Approach (ICD-10-PCS; 2019-03-01)
DX: J45.901 Unspecified asthma with (acute) exacerbation (principal); J96.02 Acute respiratory failure with hypercapnia; J96.01 Acute respiratory failure with hypoxia; A41.9 Sepsis, unspecified organism; R65.20 Severe sepsis without septic shock; E87.2 Acidosis; E46 Unspecified protein-calorie malnutrition; J44.1 Chronic obstructive pulmonary disease with (acute) exacerbation; G93.40 Encephalopathy, unspecified; Z66 Do not resuscitate; Z51.5 Encounter for palliative care; N17.9 Acute kidney failure, unspecified; E87.0 Hyperosmolality and hypernatremia; I82.4Z1 Acute embolism and thrombosis of unspecified deep veins of right distal lower extremity; R31.9 Hematuria, unspecified; I16.0 Hypertensive urgency; I10 Essential (primary) hypertension; D75.1 Secondary polycythemia; I95.9 Hypotension, unspecified; S70.11XA Contusion of right thigh, initial encounter; E78.5 Hyperlipidemia, unspecified; F31.9 Bipolar disorder, unspecified; E66.9 Obesity, unspecified; D72.829 Elevated white blood cell count, unspecified; F41.9 Anxiety disorder, unspecified; F17.210 Nicotine dependence, cigarettes, uncomplicated; Z79.891 Long term (current) use of opiate analgesic; Z79.52 Long term (current) use of systemic steroids; Z88.0 Allergy status to penicillin; Z88.6 Allergy status to analgesic agent; Z88.1 Allergy status to other antibiotic agents
CPT/HCPCS: 99223-AI; 99233-AI; 99239; A4216; C1751; C1892; C9113; J0330; J0692; J1644; J1650; J1815; J1940; J2060; J2185; J2250; J2270; J2405; J2704; J2720; J2765; J2920; J2930; J3010; J3370; J3480; J7030; J7050; J7060; J7070; J7120; J7512; P9016